=== PATIENT | female | born 1965 | race Caucasian/White ===

== ENCOUNTER 2017-06-20 09:23 | Inpatient (IN) | payer BC ==
[2017-06-20] MEDS ORDERED: CIPROFLOXACIN 400mg IV 400 MG/200 ML BAG IV ONE (09:47)
[2017-06-20] MEDS ORDERED: FENTANYL CITR 100 MCG/2 ML ONE ×2 (09:47→12:13)
[2017-06-20] MEDS ORDERED: METRONIDAZOLE 500mg IVPB 500 MG/100 ML BAG IV ONE (09:47)
[2017-06-20] MEDS ORDERED: ONDANSETRON 4 MG/2 ML VIAL ONE ×3 (09:47→12:38)
[2017-06-20] MEDS ORDERED: NA CHLORIDE 0.9% 1,000 ML ONE (09:48)
[2017-06-20 10:12] LABS: Absolute Lymphocytes (CBC) 1.8 K/uL (0.7-4.9); Absolute Monocytes 0.9 K/uL (0.1-1.3); Basophils % 0.6 % (0-1.3); Eosinophils % 0.3 % (0-4.4); Hematocrit 43.8 % (36.0-45.0); Lymphocytes % 14.1 % (15.3-44.8); MCH 27.7 pg (27.0-35.0); MCV 83.2 fL (80-100); MPV 7.9 fL (7.6-11.3); Monocytes % 7.3 % (3.3-12.3); RBC Red Blood Cell Count 5.27 M/uL (3.86-4.86)
[2017-06-20 10:21] LABS: Protime INR 1.16
[2017-06-20 10:27] LABS: Bicarbonate 27 mEq/L (21-31); Glucose Level 127 mg/dL (65-120); Lipase 12 U/L (22-51); Potassium 3.6 mEq/L (3.6-5.0); Sodium Level 135 mEq/L (135-145)
[2017-06-20 10:33] LABS: ALT/SGPT 34 IU/L (10-60); AST/SGOT 22 IU/L (10-42); Albumin 4.6 g/dL (3.2-5.5); Alkaline Phosphatase 116 IU/L (42-121); BUN Blood Urea Nitrogen 9 mg/dL (6-20); Bilirubin Direct 0.3 mg/dL (0-0.2); Bilirubin Total 2.5 mg/dL (0.3-1.2); Creatine Phosphokinase 26 IU/L (22-269); Magnesium 1.7 mg/dL (1.8-2.5); Protein, Total 8.9 g/dL (6.0-8.3)
[2017-06-20 10:36] LABS: CKMB Creatine Kinase MB 0.5 ng/ml (0.3-4.0)
--- NOTE | 2017-06-20 10:46 | ER ---
Nurse's Notes [facility] Name: Nuria Galvan Age: 52 yrs Sex: Female : 1965 Arrival Date: 06/20/2017 Time: 09:25 Bed 14 Private MD: Jony Triplett Diagnosis: Abdominal tenderness;Diverticular disease of intestine;Diverticulosis of small intestine without perforation or abscess without bleeding;Hypomagnesemia;Elevated white blood cell count Presentation: 06/20 09:36 Presenting complaint: Patient states: " I am having a diverticulitis flare. It started ph yesterday." Pt reports pain in LLQ that radiates across umbilical area to RLQ, also reports nausea, denies vomiting diarrhea or fever. Transition of care: patient was not received from another setting of care. Onset of symptoms was June 20, 2017. Initial Sepsis Screen: Does the patient meet any 2 criteria? No. Patient's initial sepsis screen is negative. Does the patient have a suspected source of infection? No. Patient's initial sepsis screen is negative. Care prior to arrival: None. 09:36 Method Of Arrival: Ambulatory ph 09:36 Acuity: SHELLIE 3 ph Triage Assessment: 09:40 General: Appears in no apparent distress. uncomfortable, well groomed, Behavior is ph calm, cooperative, appropriate for age, Denies fever. Pain: Complains of pain in left upper quadrant and left lower quadrant Pain radiates to right lower quadrant and right upper quadrant Pain currently is 10 out of 10 on a pain scale. Quality of pain is described as burning, sharp, shooting. Neuro: Level of Consciousness is awake, alert, obeys commands, Oriented to person, place, time, situation. Cardiovascular: Capillary refill < 3 seconds Patient's skin is warm and dry. Respiratory: Airway is patent Respiratory effort is even, unlabored, Respiratory pattern is regular, symmetrical. GI: Abdomen is round non-distended, Bowel sounds present X 4 quads. Abd is soft X 4 quads Abdomen is tender to palpation in left upper quadrant and left lower quadrant Reports lower abdominal pain, upper abdominal pain, nausea, Patient currently denies constipation, diarrhea, vomiting. Derm: Skin is intact, is healthy with good turgor, Skin is pink, warm \\T\\ dry. Musculoskeletal: Circulation, motion, and sensation intact. Range of motion: intact in all extremities. 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 - Social history:: Smoking status: Patient/guardian denies using tobacco, but has a distant history of tobacco abuse. - Family history:: not pertinent. Screenin:18 Abuse screen: Denies threats or abuse. Denies injuries from another. Nutritional ph screening: No deficits noted. Tuberculosis screening: No symptoms or risk factors identified. Fall Risk None identified. Assessment: 10:00 Reassessment:. General: NO change from previously documented assessment, see triage ph note. 10:30 Reassessment: Patient appears in no apparent distress at this time. Patient and/or ph family updated on plan of care and expected duration. Pain level reassessed. Patient is alert, oriented x 3, equal unlabored respirations, skin warm/dry/pink. Pt reports that nausea has improved and pain has decreased from 10/10 to 5/10, awaiting CT scan, family at bedside. 11:30 Reassessment: Patient appears in no apparent distress at this time. Patient and/or ph family updated on plan of care and expected duration. Pain level reassessed. Patient is alert, oriented x 3, equal unlabored respirations, skin warm/dry/pink. Pt c/o nausea and pain /10, provider notified, see MAR. 11:50 Reassessment: Patient appears in no apparent distress at this time. Patient is alert, ph oriented x 3, equal unlabored respirations, skin warm/dry/pink. IV to RAC infiltrated when administering IV pain and nausea medication, provider notified. 12:20 Reassessment: Patient appears in no apparent distress at this time. Patient and/or ph family updated on plan of care and expected duration. Pain level reassessed. Patient is alert, oriented x 3, equal unlabored respirations, skin warm/dry/pink. IV access re-established w/ 18G to LAC, pt taken to CT via stretcher. 13:30 Reassessment: Patient appears in no apparent distress at this time. Patient and/or ph family updated on plan of care and expected duration. Pain level reassessed. Patient is alert, oriented x 3, equal unlabored respirations, skin warm/dry/pink. Report called to NAYELI Quiñones, pt taken to floor. Vital Signs: 09:39 BP 137 / 82; Pulse 121; Resp 18; Temp 97.8(TE); Pulse Ox 100% on R/A; Weight 78.47 kg; ph Height 5 ft. 5 in. (165.10 cm); Pain 10/10; 11:00 BP 129 / 78; Pulse 97; Resp 18; Pulse Ox 99% on R/A; ph 12:30 BP 127 / 64; Pulse 88; Resp 16; Pulse Ox 98% on R/A; Pain 3/10; ph 13:30 BP 126 / 74; Pulse 84; Resp 16; Temp 98.2; Pulse Ox 98% on R/A; ph 09:39 Body Mass Index 28.79 (78.47 kg, 165.10 cm) ph ED Course: 09:25 Patient arrived in ED. as 09:25 Jony Triplett DO is Private Physician. as 09:29 Johnny Trent MD is Attending Physician. susana 09:36 Dalila Martínez RN is Primary Nurse. ph 09:38 Triage completed. ph 09:40 Arm band placed on. ph 09:47 X-ray completed. Portable x-ray completed in exam room. Patient tolerated procedure kp1 well. 09:48 XRAY Chest (1 view) In Process Unspecified. EDMS 09:55 Urine collected: clean catch specimen, cloudy, javier colored. jb1 10:05 Accessed peripheral vein via ultrasound, utilizing dynamic ultrasound technique using la1 18G Sureflo IV catheter Clean \\T\\ dry. Dressing intact. 10:11 EKG done, by ED staff, reviewed by Johnny Trent MD. jb1 10:19 Patient has correct armband on for positive identification. Placed in gown. Bed in low ph position. Call light in reach. Side rails up X 1. Pulse ox on. NIBP on. Warm blanket given. 10:44 Ron Baker MD is Hospitalizing Provider. susana 12:02 Note: . Note: NAYELI Thompson will call when pt has IV.. Radiology exam delayed due to IV cw1 insertion attempt and/or patient not having appropriate IV at this time. 12:20 IV discontinued, intact, bleeding controlled, No redness/swelling at site. Pressure la1 dressing applied. 12:20 Accessed peripheral vein via ultrasound, utilizing dynamic ultrasound technique using la1 18G Sureflo IV catheter 12:28 CT completed. Patient moved to CT via stretcher. Patient moved back from CT. cw1 13:30 No provider procedures requiring assistance completed. ph Administered Medications: 10:10 Drug: NS 0.9% 1000 ml Route: IV; Rate: 1 bolus; Site: right antecubital; ph 10:10 Drug: fentaNYL (PF) 50 mcg Route: IVP; Site: right antecubital; ph 10:10 Drug: Zofran 4 mg Route: IVP; Site: right antecubital; ph 10:10 Drug: Flagyl 500 mg Volume: 100 ml; Route: IVPB; Rate: 200 ml/hr; Infused Over: 30 ph mins; Site: right antecubital; 10:50 Follow up: Response: No adverse reaction; IV Status: Completed infusion ph 10:48 Drug: Cipro 400 mg Volume: 200 ml; Route: IVPB; Infused Over: 60 mins; Site: right ph antecubital; 11:40 Drug: fentaNYL (PF) 50 mcg Route: IVP; Site: right antecubital; ph 11:40 Drug: Zofran 4 mg Route: IVP; Site: right antecubital; ph 12:20 Drug: fentaNYL (PF) 25 mcg Route: IVP; Site: left antecubital; ph 12:40 Drug: Rocephin - (cefTRIAXone) 1 grams Route: IVPB; Infused Over: 30 mins; Site: left ph antecubital; 12:45 Drug: Zofran 4 mg Route: IVP; Site: left antecubital; ph 12:50 Drug: Magnesium Sulfate 1 grams Route: IVPB; Infused Over: 1 hrs; Site: left ph antecubital; Outcome: 10:46 Decision to Hospitalize by Provider. susana 13:42 Patient left the ED. rb1 13:42 Admitted to Med/surg accompanied by tech, via wheelchair, with chart. ph 13:42 Condition: stable 13:42 Instructed on the need for admit. Signatures: Dispatcher [employer] EDJi German jb1 Johnny Trent MD MD cha Martinez, Amelia as Woodley, Crystal cw1 Jay Weber RN RN la1 Dalila Martínez RN RN ph Cara Aguiar, RN RN rb1 Elvira Colbert kp1 Corrections: (The following items were deleted from the chart) 12:50 12:40 Rocephin - (cefTRIAXone) 1 grams IVPB in right antecubital over 30 mins ph ph
--- NOTE | 2017-06-20 10:47 | EDPHYS ---
Physician Documentation [facility] Name: Nuria Galvan Age: 52 yrs Sex: Female : 1965 Arrival Date: 06/20/2017 Time: 09:25 Bed 14 Private MD: [facility] ED Physician Johnny Trent HPI: 06/20 09:36 This 52 yrs old Female presents to ER via Unassigned with complaints of susana Abdominal Pain. 09:36 The patient presents with abdominal pain in the upper abdomen, in the lower abdomen, susana abdominal distention in the upper abdomen, in the lower abdomen. Onset: The symptoms/episode began/occurred 2 day(s) ago. The symptoms do not radiate. Associated signs and symptoms: none. The symptoms are described as constant, crampy. Severity of pain: At its worst the pain was mild moderate in the emergency department the pain is unchanged. The patient has not experienced similar symptoms in the past. 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 - Social history:: Smoking status: Patient/guardian denies using tobacco, but has a distant history of tobacco abuse. - Family history:: not pertinent. ROS: 09:36 Constitutional: Negative for fever, chills, and weight loss, Eyes: Negative for injury, susana pain, redness, and discharge, ENT: Negative for injury, pain, and discharge, Neck: Negative for injury, pain, and swelling, Cardiovascular: Negative for chest pain, palpitations, and edema, Respiratory: Negative for shortness of breath, cough, wheezing, and pleuritic chest pain, Back: Negative for injury and pain, : Negative for injury, bleeding, discharge, and swelling, MS/Extremity: Negative for injury and deformity, Skin: Negative for injury, rash, and discoloration, Neuro: Negative for headache, weakness, numbness, tingling, and seizure, Psych: Negative for depression, anxiety, suicide ideation, homicidal ideation, and hallucinations, Allergy/Immunology: Negative for hives, rash, and allergies, Endocrine: Negative for neck swelling, polydipsia, polyuria, polyphagia, and marked weight changes, Hematologic/Lymphatic: Negative for swollen nodes, abnormal bleeding, and unusual bruising. 09:36 Abdomen/GI: Positive for abdominal pain, of the right upper quadrant, left upper quadrant, right lower quadrant and left lower quadrant. Exam: 09:36 Constitutional: This is a well developed, well nourished patient who is awake, alert, susana and in no acute distress. Head/Face: Normocephalic, atraumatic. Eyes: Pupils equal round and reactive to light, extra-ocular motions intact. Lids and lashes normal. Conjunctiva and sclera are non-icteric and not injected. Cornea within normal limits. Periorbital areas with no swelling, redness, or edema. ENT: Nares patent. No nasal discharge, no septal abnormalities noted. Tympanic membranes are normal and external auditory canals are clear. Oropharynx with no redness, swelling, or masses, exudates, or evidence of obstruction, uvula midline. Mucous membranes moist. Neck: Trachea midline, no thyromegaly or masses palpated, and no cervical lymphadenopathy. Supple, full range of motion without nuchal rigidity, or vertebral point tenderness. No Meningismus. Chest/axilla: Normal chest wall appearance and motion. Nontender with no deformity. No lesions are appreciated. Cardiovascular: Regular rate and rhythm with a normal S1 and S2. No gallops, murmurs, or rubs. Normal PMI, no JVD. No pulse deficits. Respiratory: Lungs have equal breath sounds bilaterally, clear to auscultation and percussion. No rales, rhonchi or wheezes noted. No increased work of breathing, no retractions or nasal flaring. Back: No spinal tenderness. No costovertebral tenderness. Full range of motion. Skin: Warm, dry with normal turgor. Normal color with no rashes, no lesions, and no evidence of cellulitis. MS/ Extremity: Pulses equal, no cyanosis. Neurovascular intact. Full, normal range of motion. Neuro: Awake and alert, GCS 15, oriented to person, place, time, and situation. Cranial nerves II-XII grossly intact. Motor strength 5/5 in all extremities. Sensory grossly intact. Cerebellar exam normal. Normal gait. Psych: Awake, alert, with orientation to person, place and time. Behavior, mood, and affect are within normal limits. 09:36 Abdomen/GI: Inspection: abdomen appears normal, Bowel sounds: active, Palpation: mild abdominal tenderness, moderate abdominal tenderness, Liver: no appreciated palpable abnormalities, Hernia: not appreciated. Vital Signs: 09:39 BP 137 / 82; Pulse 121; Resp 18; Temp 97.8(TE); Pulse Ox 100% on R/A; Weight 78.47 kg; ph Height 5 ft. 5 in. (165.10 cm); Pain 10/10; 11:00 BP 129 / 78; Pulse 97; Resp 18; Pulse Ox 99% on R/A; ph 12:30 BP 127 / 64; Pulse 88; Resp 16; Pulse Ox 98% on R/A; Pain 3/10; ph 13:30 BP 126 / 74; Pulse 84; Resp 16; Temp 98.2; Pulse Ox 98% on R/A; ph 09:39 Body Mass Index 28.79 (78.47 kg, 165.10 cm) ph MDM: 09:[address] [facility] 09:38 Data reviewed: vital signs, nurses notes, lab test result(s), EKG, radiologic studies, [facility] CT scan, plain films. 06/20 09:35 Order name: Basic Metabolic Panel; Complete Time: 10:40 [facility] 06/20 09:35 Order name: BNP; Complete Time: 10:43 [facility] 06/20 09:35 Order name: CBC with Diff; Complete Time: 10:40 [facility] 06/20 09:35 Order name: Ckmb; Complete Time: 10:40 [facility] 06/20 09:35 Order name: CPK; Complete Time: 10:40 [facility] 06/20 09:35 Order name: LFT's; Complete Time: 10:40 [facility] 06/20 09:35 Order name: Magnesium; Complete Time: 10:40 [facility] 06/20 09:35 Order name: PT-INR; Complete Time: 10:40 [facility] 06/20 09:35 Order name: Ptt, Activated; Complete Time: 10:40 [facility] 06/20 09:35 Order name: Troponin (emerg Dept Use Only); Complete Time: 10:40 [facility] 06/20 09:35 Order name: XRAY Chest (1 view); Complete Time: 11:33 [facility] 06/20 09:35 Order name: CT Abd/Pelvis - W/Contrast [facility] 06/20 09:35 Order name: Lipase; Complete Time: 10:40 [facility] 06/20 09:59 Order name: Urine Dipstick--Ancillary (enter results); Complete Time: 13:34 eb 06/20 09:35 Order name: EKG; Complete Time: 09:36 [facility] 06/20 09:35 Order name: Cardiac monitoring; Complete Time: 09:56 [facility] 06/20 09:35 Order name: EKG - Nurse/Tech; Complete Time: 10:11 [facility] 06/20 09:35 Order name: IV Saline Lock; Complete Time: 10:11 [facility] 06/20 12:39 Order name: CT; Complete Time: 13:34 EDMS 06/20 09:35 Order name: Labs collected and sent; Complete Time: 10:11 [facility] 06/20 09:35 Order name: O2 Per Protocol; Complete Time: 09:57 [facility] 06/20 09:35 Order name: O2 Sat Monitoring; Complete Time: 09:57 [facility] 06/20 09:35 Order name: Urine Dipstick-Ancillary (obtain specimen); Complete Time: 09:56 [facility] Administered Medications: 10:10 Drug: NS 0.9% 1000 ml Route: IV; Rate: 1 bolus; Site: right antecubital; ph 10:10 Drug: fentaNYL (PF) 50 mcg Route: IVP; Site: right antecubital; ph 10:10 Drug: Zofran 4 mg Route: IVP; Site: right antecubital; ph 10:10 Drug: Flagyl 500 mg Volume: 100 ml; Route: IVPB; Rate: 200 ml/hr; Infused Over: 30 ph mins; Site: right antecubital; 10:50 Follow up: Response: No adverse reaction; IV Status: Completed infusion ph 10:48 Drug: Cipro 400 mg Volume: 200 ml; Route: IVPB; Infused Over: 60 mins; Site: right ph antecubital; 11:40 Drug: fentaNYL (PF) 50 mcg Route: IVP; Site: right antecubital; ph 11:40 Drug: Zofran 4 mg Route: IVP; Site: right antecubital; ph 12:20 Drug: fentaNYL (PF) 25 mcg Route: IVP; Site: left antecubital; ph 12:40 Drug: Rocephin - (cefTRIAXone) 1 grams Route: IVPB; Infused Over: 30 mins; Site: left ph antecubital; 12:45 Drug: Zofran 4 mg Route: IVP; Site: left antecubital; ph 12:50 Drug: Magnesium Sulfate 1 grams Route: IVPB; Infused Over: 1 hrs; Site: left ph antecubital; Disposition: 06/20/17 10:46 Hospitalization ordered by Ron Baker for Inpatient Admission. Preliminary diagnosis are Abdominal tenderness, Diverticular disease of intestine, Diverticulosis of small intestine without perforation or abscess without bleeding, Hypomagnesemia, Elevated white blood cell count. - Bed requested for Telemetry/MedSurg (Inpatient). - Status is Inpatient Admission. rb1 - Condition is Stable. - Problem is new. - Symptoms have improved. UTI on Admission? No Signatures: Dispatcher [employer] EDMS Johnny Trent MD MD cha Smirch, Shelby, RN RN ss Dalila Martínez RN RN Cara Aguiar RN RN rb1 Miryam Presley
--- NOTE | 2017-06-20 10:57 | RAD REPORT ---
EXAM DESCRIPTION: RAD - Chest Single View - 06/20/2017 9:49 am CLINICAL HISTORY: Chest and abdomen pain. COMPARISON: 10/17/2016 FINDINGS: Portable technique limits examination quality. The lungs are grossly clear. The heart is normal in size. No displaced fractures. IMPRESSION: No acute intrathoracic process suspected.
[2017-06-20] MEDS ORDERED: ONDANSETRON 4 MG/2 ML VIAL IV PRN (11:08)
[2017-06-20] MEDS ORDERED: ACETAMINOPHEN 500 MG TAB PO PRN (11:08)
[2017-06-20] MEDS ORDERED: MAGNESIUM SULFATE 1 gm IVPB 1 GM/100 ML BAG IV ONE (11:28)
[2017-06-20] MEDS ORDERED: CEFTRIAXONE/SWI 1gm 1 GM/10 ML SYR ONE (11:28)
[2017-06-20 12:28] LABS: Urine Blood TRACE (NEG); Urine Glucose NEGATIVE (NEG); Urine Protein TRACE (NEG); Urine Specific Gravity 1.025 (1.005-1.030); Urine pH 5.5 (5.0-7.0)
--- NOTE | 2017-06-20 12:39 | RAD REPORT ---
EXAM DESCRIPTION: CTAbdomen Pelvis W Contrast - 06/20/2017 12:29 pm CLINICAL HISTORY: Abdominal pain. Left lower quadrant pain COMPARISON: 10/16/2016, 10/07/2016, 10/23/2014 TECHNIQUE: Biphasic CT imaging of the abdomen and pelvis was performed with 100 ml non-ionic IV cont rast. All CT scans are performed using dose optimization technique as appropriate and may include automated exposure control or mA/KV adjustment according to patient size. FINDINGS: The lung bases are clear. Mild diffuse fatty liver is noted. No focal liver lesion or intrahepatic biliary dilatation. A small hiatal hernia is seen. The spleen, pancreas, adrenal glands and kidneys are within normal limits. 5 cm length of transverse colon in the left abdomen demonstrates significant wall thickening and lucrecia colonic inflammatory changes compatible with moderately severe acute diverticulitis. No peridiverticu lar abscess identified. No bowel obstruction, free fluid in the abdomen or free air. Trace pelvic demarcus e fluid is seen. The appendix is normal. No evidence of significant lymphadenopathy. No suspicious bony findings. IMPRESSION: 5 cm length of transverse colon moderate acute diverticulitis is noted. No peridiverticu lar abscess or other complication evident.
[2017-06-20] MEDS ORDERED: HYDROCODONE/APAP 5/325 MG TAB PO PRN (14:02)
[2017-06-20 14:21] VITALS: BMI 29.0
[2017-06-20] MEDS: D5 0.45 NS 1,000 ML IV SCH (14:28)
[2017-06-20] MEDS ORDERED: SODIUM CHLORIDE 0.9% 10ML INJ IV PRN (14:33)
[2017-06-20] MEDS ORDERED: FENTANYL CITR 100 MCG/2 ML IV ONE (15:00)
[2017-06-20] MEDS: PIPER/TAZO/NS 3.375gm 3.375 GM/100 ML BAG IVPB SCH (17:14)
[2017-06-20] MEDS ORDERED: TRAMADOL HCL 50 MG TAB PO PRN (17:18)
[2017-06-20] MEDS ORDERED: TRAMADOL HCL 50 MG TAB PO SCH (21:00)
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
[2017-06-21] MEDS: PIPER/TAZO/NS 3.375gm 3.375 GM/100 ML BAG IVPB SCH ×3 (01:00→17:39)
[2017-06-21] MEDS: D5 0.45 NS 1,000 ML IV SCH ×3 (01:00→17:39)
--- NOTE | 2017-06-21 04:23 | CON ---
Date of Consultation: 06/20/2017 Reason For Service: Diverticulitis. History Of Present Illness: This is the case of a 52-year-old patient, who comes to us complaining o f a left lower quadrant pain. She is not new to this. She stated that in the past she has history o f diverticulitis requiring removal of part of the sigmoid colon. She has been trying to keep her t, but she said in the last 2 days she started experiencing this left lower quadrant pain similar to the one she has diverticulitis before. Today, she decided to come to the ER after she noted she was not getting better. She denies any dysuria, hematuria, hematochezia, or melena. Den[place] any recent [place]. Denies any family member sick at home. Previous colonoscopy unknown. Allergies: NONE. Medications: Protonix. Past Medical History: Diverticulitis, mitral valve prolapse. Past Surgical History: Sigmoid resection. Social History: The patient does not smoke. She does not drink alcohol. Review of Systems: Constitutional: Denies any fever. Respiratory: Denies any shortness of breath. Abdomen: As above. Genitourinary: Denies any dysuria or hematuria. Physical Examination: General: The patient is awake and alert. HEENT: Pupils are equal and reactive, anicteric. Neck: Supple. Chest: Clear. Heart: S1, S2. Abdomen: Left lower quadrant tenderness. No rebound, although there is some guarding. Breasts: Deferred. Pelvic: Deferred. Rectal: Deferred. Extremities: Good capillary refill. Imaging: CAT scan of abdomen and pelvis, interpreted by Dr. Infante as 5 cm in length of left transvers e colon moderate acute diverticulitis. Laboratory Data: Blood work shows a WBC count of 12.9, hemoglobin of 14.6. Total bilirubin of 2.5 a nd bicarb is 27. Assessment: This is a 52-year-old patient with colitis, presumably diverticulitis. The patient has previous surgery. The patient will continue on antibiotics, n.p.o., bowel rest. We are going to do serial abdominal examination and then proceed accordingly. The patient understands the differential diagnosis of her disease and also the options of emergent laparotomy if we see that clinically she do es not improve. She understands. TANIKA/SHEELA Voice ID: [id number] Report ID: [id number]
[2017-06-21 05:43] LABS: ALT/SGPT 28 IU/L (10-60); AST/SGOT 19 IU/L (10-42); Absolute Lymphocytes (CBC) 1.6 K/uL (0.7-4.9); Absolute Monocytes 0.7 K/uL (0.1-1.3); Absolute Neutrophil 4.9 K/uL (1.8-8.0); Albumin 3.3 g/dL (3.2-5.5); Alkaline Phosphatase 89 IU/L (42-121); BUN Blood Urea Nitrogen 5 mg/dL (6-20); Basophils % 0.7 % (0-1.3); Bicarbonate 26 mEq/L (21-31); Bilirubin Total 2.2 mg/dL (0.3-1.2); Glucose Level 131 mg/dL (65-120); Hematocrit 35.7 % (36.0-45.0); Lymphocytes % 21.7 % (15.3-44.8); MCH 27.7 pg (27.0-35.0); MCV 83.8 fL (80-100); MPV 8.1 fL (7.6-11.3); Magnesium 1.9 mg/dL (1.8-2.5); Monocytes % 9.8 % (3.3-12.3); Potassium 3.5 mEq/L (3.6-5.0); Protein, Total 6.6 g/dL (6.0-8.3); RBC Red Blood Cell Count 4.26 M/uL (3.86-4.86); Sodium Level 137 mEq/L (135-145)
[2017-06-21] MEDS ORDERED: POTASSIUM 25 MEQ EFFERV TAB PO ONE (06:25)
--- NOTE | 2017-06-21 07:06 | EKG ---
Test Date: 2017-06-20 Test Time: 10:06:03 Equipment Oiler: CLAIRE MEASUREMENT RESULTS: Intervals: Rate: 117 PA: 202 QRSD: 130 QT: 356 QTc: 496 [place]: P: 58 PA: 202 QRS: 30 T: 11 INTERPRETIVE STATEMENTS: Sinus tachycardia Right bundle branch block Abnormal ECG Compared to ECG 10/16/2016 12:32:16 Sinus rhythm no longer present Electronically Signed On 06-21-17 07:05:50 CDT by Berto Gray
[2017-06-21] MEDS: PANTOPRAZOLE 40 MG INJ IVP SCH (09:42)
--- NOTE | 2017-06-21 10:15 | P.PN ---
Subjective Date of Service: 06/21/17 Chief Complaint: abdominal pain The patient feels better this morning, however, no appetite yet. No fever. Physical Examination - Vital Signs Temperature: 97.6 F Blood Pressure: 119/59 Pulse: 76 Respirations: 16 Pulse Ox (%): 96 - Physical Exam General: Alert, In no apparent distress HEENT: Atraumatic, PERRLA, EOMI Neck: Supple, JVD not distended Respiratory: Clear to auscultation bilaterally, Normal air movement Cardiovascular: Regular rate/rhythm, Normal S1 S2 Gastrointestinal: Normal bowel sounds, Tenderness (less tender to palpation on LLQ) Musculoskeletal: No tenderness Integumentary: No rashes Neurological: Normal speech, Normal tone, Normal affect - Studies Laboratory Data (last 24 hrs) 06/20/17 10:05: PT 13.7 H, INR 1.16, APTT 32.8 06/20/17 10:05: WBC 12.9 H, Hgb 14.6, Hct 43.8, Plt Count 383 06/20/17 10:05: B-Natriuretic Peptide 12 06/20/17 10:05: Sodium 135, Potassium 3.6, BUN 9, Creatinine 0.68, Glucose 127 H , Magnesium 1.7 L, Total Bilirubin 2.5 H, AST 22, ALT 34, Alkaline Phosphatase 116, Lipase 12 L Assessment And Plan - Current Problems (Diagnosis) (1) Abdominal pain Onset Date: 06/21/17 Current Visit: Yes Status: Acute Qualifiers: Abdominal location: left lower quadrant Qualified Code(s): R10.32 - Left lower quadrant pain (2) Diverticulitis Onset Date: 09/03/14 Current Visit: No Status: Acute (3) Hypokalemia Current Visit: Yes Status: Acute - Plan # 1 acute diverticulitis: she is clinically improving, no fever, WBC decreasing , pain better controlled. Continue IV abx. Dr Lozano on board, plan for surgery if not improving. #2 hypokalemia: will replace potassium per protocol.
[2017-06-22] MEDS: PIPER/TAZO/NS 3.375gm 3.375 GM/100 ML BAG IVPB SCH ×3 (00:26→16:26)
[2017-06-22] MEDS: D5 0.45 NS 1,000 ML IV SCH ×3 (04:01→16:26)
[2017-06-22 05:45] LABS: Absolute Monocytes 0.7 K/uL (0.1-1.3); Absolute Neutrophil 4.1 K/uL (1.8-8.0); Basophils % 0.6 % (0-1.3); Eosinophils % 5.7 % (0-4.4); Hematocrit 35.8 % (36.0-45.0); Lymphocytes % 27.2 % (15.3-44.8); MCH 28.4 pg (27.0-35.0); MCV 83.7 fL (80-100); MPV 8.1 fL (7.6-11.3); Monocytes % 9.5 % (3.3-12.3); RBC Red Blood Cell Count 4.28 M/uL (3.86-4.86)
[2017-06-22 07:04] LABS: ALT/SGPT 37 IU/L (10-60); AST/SGOT 20 IU/L (10-42); Albumin 2.9 g/dL (3.2-5.5); Alkaline Phosphatase 114 IU/L (42-121); BUN Blood Urea Nitrogen 5 mg/dL (6-20); Bicarbonate 26 mEq/L (21-31); Bilirubin Total 2.1 mg/dL (0.3-1.2); Glucose Level 116 mg/dL (65-120); Potassium 3.8 mEq/L (3.6-5.0); Sodium Level 137 mEq/L (135-145)
[2017-06-22] MEDS ORDERED: POTASSIUM CL SA 10 MEQ TAB PO ONE (09:00)
[2017-06-22] MEDS: PANTOPRAZOLE 40 MG INJ IVP SCH (09:52)
--- NOTE | 2017-06-22 17:41 | P.PN ---
Subjective Date of Service: 06/22/17 Chief Complaint: abdominal pain The patient is doing better, no abdominal pain. Physical Examination - Vital Signs Temperature: 97.9 F Blood Pressure: 124/60 Pulse: 59 Respirations: 18 Pulse Ox (%): 98 - Physical Exam General: Alert, In no apparent distress Respiratory: Clear to auscultation bilaterally, Normal air movement Cardiovascular: Regular rate/rhythm, Normal S1 S2 Gastrointestinal: Normal bowel sounds, No tenderness Musculoskeletal: No tenderness Integumentary: No rashes Neurological: Normal speech, Normal tone, Normal affect - Studies Medications List Reviewed: Yes Assessment And Plan - Current Problems (Diagnosis) (1) Abdominal pain Onset Date: 06/21/17 Current Visit: Yes Status: Acute Qualifiers: Abdominal location: left lower quadrant Qualified Code(s): R10.32 - Left lower quadrant pain (2) Diverticulitis Onset Date: 09/03/14 Current Visit: No Status: Acute (3) Hypokalemia Current Visit: Yes Status: Acute - Plan # 1 acute diverticulitis: No abdominal pain, no fever, WBC WNL. She tolerated well clear liquids diet. Will try full liquids tonight. Continue IV abx. Dr Lozano on board. #2 hypokalemia: resolved. plan: will try GI soft diet in AM if she continue improving. Then if she tolerate diet ok, can be discharged.
--- NOTE | 2017-06-22 18:04 | PN ---
Date of Progress Note: 06/22/2017 Diagnosis: Diverticulitis. Subjective: The patient is doing better, barely any pain, tolerating clear liquid diet and passing f latus. Review of Systems: Constitutional: Denies any fever. Gastrointestinal: Less pain. No hematuria. No melena. No rylee tochezia. Respiratory: No shortness of breath. Physical Examination: Lungs: Bilateral breath sounds. Extremities: No calf tenderness. The patient is ambulating. Abdomen: Soft and depressible. Mild left lower quadrant tenderness. Laboratory Data: Blood work shows a WBC count of 7.2. Plan: We are going to advance to full liquid diet. Out of bed. Continue on antibiotics. Follow up with GI. The patient states she had a colonoscopy done in March. Other than 1 polyp, everything is okay and also diverticulum obviously. TANIKA/SHEELA Voice ID: [id number] Report ID: [id number]
[2017-06-22 22:49] VITALS: O2SAT 96
[2017-06-23] MEDS: D5 0.45 NS 1,000 ML IV SCH ×2 (00:34→08:52)
[2017-06-23] MEDS: PIPER/TAZO/NS 3.375gm 3.375 GM/100 ML BAG IVPB SCH ×2 (00:34→08:48)
[2017-06-23 05:26] LABS: Absolute Lymphocytes (CBC) 1.9 K/uL (0.7-4.9); Absolute Monocytes 0.5 K/uL (0.1-1.3); Absolute Neutrophil 1.9 K/uL (1.8-8.0); Basophils % 0.7 % (0-1.3); Eosinophils % 8.4 % (0-4.4); Hematocrit 34.9 % (36.0-45.0); Lymphocytes % 40.7 % (15.3-44.8); MCH 27.8 pg (27.0-35.0); MCV 83.3 fL (80-100); MPV 8.1 fL (7.6-11.3); Monocytes % 9.8 % (3.3-12.3); RBC Red Blood Cell Count 4.18 M/uL (3.86-4.86)
[2017-06-23 05:46] LABS: ALT/SGPT 35 IU/L (10-60); AST/SGOT 22 IU/L (10-42); Alkaline Phosphatase 121 IU/L (42-121); Bicarbonate 25 mEq/L (21-31); Bilirubin Total 1.1 mg/dL (0.3-1.2); Glucose Level 109 mg/dL (65-120); Protein, Total 6.2 g/dL (6.0-8.3); Sodium Level 138 mEq/L (135-145)
[2017-06-23 05:55] LABS: BUN Blood Urea Nitrogen < 5 mg/dL (6-20)
[2017-06-23] MEDS: PANTOPRAZOLE 40 MG INJ IVP SCH (08:47)
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
[2017-06-23 13:36] VITALS: BP 117/57; TEMP 97.2
--- NOTE | 2017-07-02 01:35 | CON ---
Date of Consultation: 06/22/2017 Reason For Consultation: Diverticulitis with abnormal CT scan with abdominal pain, nausea, vomiting, fever, chills. History Of Present Illness: This patient is a 52-year-old white female with history of diverticulosi s and recurrent diverticulitis, who comes to the hospital with abdominal pain in the left upper quadr ant. The patient states the pain reached 10/10 level, now down to 2/10 with p.r.n. pain medicines an d antiemetics and IV antibiotics. CT scan revealed diverticulitis in the transverse colon. She has left upper quadrant pain, nausea, vomiting, fevers, and chills. White count is elevated at 12.1 with low magnesium. Past Medical History: Significant for recurrent diverticulitis, gastroesophageal reflux disease, and mitral valve prolapse. Past Surgical History: Remarkable for partial colectomy, left 16 inches of her colon, tub al ligation, and cholecystectomy. Allergies: NKDA. Family History: Father has hypertension, of pituitary adenoma. Mom has diverticulitis and lung cancer. Sister and did have epilepsy. Social History: No tobacco, alcohol, or illicit drug use. Review of Systems: Significant for left upper quadrant pain, nausea, fevers, chills. She states now that she has no filemon sis only the nausea with fevers and chills and left upper quadrant pain. She denies any chest pain, shortness of breath, seizure, syncope, lower extremity edema, muscle aches, backaches, depression, an xiety, melena, hematochezia, hematemesis, coffee-ground emesis, hematuria, dysuria, polydipsia. Physical Examination: Vital Signs: The patient is afebrile. Temperature of 97.7 degrees Fahrenheit, pulse 67, respiration s 18, blood pressure 101/52, O2 saturation 96%. General: She is a well-nourished female, lying in bed, in no acute distress. HEENT: Normocephalic, atraumatic. Anicteric. Pupils equal, round, and reactive to light. Anicteri c sclerae. Oropharynx is clear. Throat clear. Neck: Supple. No masses. Respirations: Clear to auscultation bilaterally. Cardiac: Regular rate and rhythm. Gastrointestinal: Positive bowel sounds. Hypoactive. Soft, nondistended. Pain in the left upper q uadrant area. No peritoneal or Castillo sign. No rebound. Extremities: No clubbing, cyanosis, or edema. 2+ pulses. Neuro: Alert and oriented x3. Grossly nonfocal. 5/5 motor strength. Sensation to light touch. Laboratory Data: The patient has a white count of 7.2, down from 12.9 two days ago. Hemoglobin of 1 2.1, hematocrit 36, MCV of 84, platelet count 312, polys of 57%, lymphocytes 27%, monocytes 10%, and eosinophils 6%. PT of 13.7, INR of 1.2, PTT 32.8. The patient has a sodium 137, potassium 3.8, chlo ride 106, bicarb 26, BUN of 5, creatinine of 0.6, glucose 116, calcium 8.6, magnesium 1.9, total bili taylor 2.1, AST of 20, ALT of 37, alkaline phosphatase 114. Troponin I less than 0.03. Total protein 6.9, albumin 2.9, lipase of 12. UA shows trace blood, trace protein. Imaging: CT scan abdomen and pelvis reviewed. A 5-cm length of transverse colon with moderate acute diverticulitis. No peridiverticular abscess or other complication. Chest x-ray is negative. Impression: Diverticulitis of transverse colon, 5 cm area of transverse colon inflamed that is consi stent with diverticulitis, noted on CT scan. The patient has left lower quadrant pain at 10/10 prior to admission, now 2/10 after IV antibiotics and IV pain medicine with nausea, fevers, chills. No em esis. She has recurrent diverticulitis x5 with sigmoid colon resection after 4 events. Last colonos copy was in March 2017, which revealed colon polyps, diverticulosis, and hemorrhoids. Recommendations: 1.Continue IV antibiotics and IV fluids. 2.Continue p.r.n. pain medications. 3.Consider partial colectomy. SCOTT/SHEELA Voice ID: [id number] Report ID: [id number]
--- NOTE | 2017-09-07 12:49 | P.PN ---
Subjective Date of Service: 06/21/17 Chief Complaint: abdominal pain, colitis Subjective: Ambulating, Improving Review of Systems Respiratory: Unremarkable Cardiovascular: Unremarkable Gastrointestinal: Unremarkable Musculoskeletal: Unremarkable Physical Examination - Vital Signs Temperature: 97.2 F Blood Pressure: 117/57 Pulse: 64 Respirations: 20 Pulse Ox (%): 96 - Physical Exam General: Alert, In no apparent distress, Oriented x3 HEENT: PERRLA, EOMI Neck: Supple Gastrointestinal: No rebound, Tenderness (better) Musculoskeletal: No swelling - Studies Medications List Reviewed: Yes Assessment And Plan - Plan abx clears oob
== END 2017-06-23 14:04 | disposition home or self-care (01) | DRG 392 ==
LOC: ER 09:23 → ERHOLD 10:47 → 2ND 13:24
PROVIDERS: ADMIT Family Medicine; ATTEND Internal Medicine
DX: K57.32 Diverticulitis of large intestine without perforation or abscess without bleeding (principal); E83.42 Hypomagnesemia; E87.6 Hypokalemia; I10 Essential (primary) hypertension; K21.9 Gastro-esophageal reflux disease without esophagitis
CPT/HCPCS: 36415; 71045; 74177; 80048; 80053; 80076; 81003; 82550; 82553; 83690; 83735; 83880; 84484; 85025; 85610; 85730; 93005; 94760; 99285; C9113; J0696; J0744; J2405; J2543; J3010; J3475; J7030; Q9967

== ENCOUNTER 2022-03-24 08:43 | Emergency (ER) | payer OTHER ==
--- OUTSIDE RECORDS SUMMARY | 2022-03-24 08:46 | XMS REPORT | Continuity of Care Document ---
:[address] [facility] t Address [address] [place] [address] Care Team Providers Name Role Phone Jony Triplett Primary Care Physician Jony Triplett Attending Clinician Unavailable JEY KELLY Attending Clinician Unavailable DONNELL HANKINS Attending Clinician Unavailable Donnell Adler Attending Clinician Unknown, Attending Attending Clinician Unavailable Ioana Dial Attending Clinician IOANA HARMAN Attending Clinician Unavailable Bibi Jones MD Attending Clinician Doctor Unassigned, Makena Attending Clinician Unavailable Payers Payer Name Policy Type Policy Number Effective Date Expiration Date [facility] [id number] 2021 PPO 00:00:00 Problems Condition Condition Condition Status Onset Resolution Last Treating Co mments Source Name Details Category Date Date Treatment Clinician Date No known No known Disease Unive rs active active ity of problems problems [facility] Allergies, Adverse Reactions, Alerts Allergy Allergy Status Severity Reaction(s) Onset Inactive Treating Comm ents Source Name Type Date Date Clinician NO KNOWN Drug Active Univers ALLERGIE Class ity of S [facility] Social History Social Habit Start Date Stop Date Quantity Comments Source Exposure to 2022-03-12 2022-03-22 Not sure [facility] SARS-CoV-2 00:00:00 09:45:00 [facility] (event) [place] Tobacco use and 2021-08-25 2021-08-25 Smokeless tobacco Un iversity of exposure 00:00:00 00:00:00 non-user [facility] Sex Ass[birth year] At [birth year] Universit y of 00:00:00 00:00:00 [facility] Smoking Status Start Date Stop Date Source Unknown if ever smoked [facility] Never smoked tobacco [facility] Medications Ordered Filled Start Stop Current Ordering Indication Dosage Frequency Signature Comments Components Source Medication Medication Date Date Medication? Clinician (SIG) Name Name pantoprazol Yes Take by Uni vers e sodium 1-22 mouth. ity of (PROTONIX 09:49: [place] ORAL) 02 [facility] Branch lidocaine Yes [id number] 15mL Take 15 mL Univers 2% viscous -22 by mouth ity o f (LIDOCAINE 00:00: [place] 4 [place] VISC[place] 2 00 (four) Medical % solution hours as Branc h needed for Oral mucosal pain. acyclovir 2022- Yes [id number] 800mg Take 1 Univers 800 mg 1-22 01-30 tablet by ity of tablet 00:00: 05:59 mouth 5 [place] 00 :00 (five) Medical times Branch daily for 7 days. pantoprazol Yes Take by Uni vers e sodium 6-27 mouth. ity of (PROTONIX 09:29: [place] ORAL) 55 Medical Branch pantoprazol Yes Take by Uni vers e sodium 6-27 mouth. ity of (PROTONIX 09:29: [place] ORAL) 55 Medical Branch pantoprazol Yes Take by Uni vers e sodium 6-27 mouth. ity of (PROTONIX 09:29: [place] ORAL) 55 Medical Branch naproxen Yes [id number] 500mg Take 1 Un [place] 500 mg 6-27 tablet by ity of tablet 00:00: mouth [place] 00 every 8 Medical (eight) Branch hours as needed for Pain (scale 4-6). naproxen Yes [id number] 500mg Take 1 Un [place] 500 mg 6-27 tablet by ity of tablet 00:00: mouth [place] 00 every 8 Medical (eight) Branch hours as needed for Pain (scale 4-6). naproxen Yes [id number] 500mg Take 1 Un [place] 500 mg 6-27 tablet by ity of tablet 00:00: mouth [place] 00 every 8 Medical (eight) Branch hours as needed for Pain (scale 4-6). naproxen Yes [id number] 500mg Take 1 Un [place] 500 mg 6-27 tablet by ity of tablet 00:00: mouth [place] 00 every 8 Medical (eight) Branch hours as needed for Pain (scale 4-6). Vital Signs Vital Name Observation Time Observation Value Comments Source Systolic blood 2022-03-22 15:47:00 143 mm[Hg] [facility] Diastolic blood 2022-03-22 15:47:00 88 mm[Hg] [facility] Heart rate 2022-03-22 15:47:00 83 /min Universi ty [facility] Body temperature 2022-03-22 15:47:00 37.11 Kerry [facility] Respiratory rate 2022-03-22 15:47:00 20 /min [facility] Body height 2022-03-22 15:47:00 167.6 cm Universi ty [facility] Body weight 2022-03-22 15:47:00 78.245 kg Universi ty [facility] BMI 2022-03-22 15:47:00 27.84 kg/m2 [facility] saturation in 2022-03-22 15:47:00 99 /min [facility] Arterial blood by [facility] Pulse oximetry Branch Systolic blood 2021-08-25 14:28:00 153 mm[Hg] [facility]iver [facility] Diastolic blood 2021-08-25 14:28:00 81 mm[Hg] Unive [facility] Heart rate 2021-08-25 14:28:00 68 /min Universi ty [facility] Body temperature 2021-08-25 14:28:00 36.5 [facility] 2021-08-25 14:28:00 17 /min [facility] Body height 2021-08-25 14:28:00 165.1 cm Universi ty [facility] Body weight 2021-08-25 14:28:00 79.833 kg Universi ty [facility] BMI 2021-08-25 14:28:00 29.29 kg/m2 Universi ty of [facility] Oxygen saturation in 2021-08-25 14:28:00 98 /min [facility] blood by [facility] Pulse oximetry Branch Procedures Procedure Date / Time Performed Performing Clinician Pasqualec e XR PELVIS <3 VW 2021-08-25 14:57:00 Ioana Harman [facility] ASSIGNMENT OF BENEFITS 2021-08-25 14:20:28 Doctor Unassigned, No [facility] Encounters Start End Encounter Admission Attending Care Care Encounter Source Date/Time Date/Time Type Type Clinicians Facility Department ID 2022-01-02 [facility] [id number] Common 08:18:01 [facility] [address] [facility] 2022-03-22 2022-03-22 Outpatient R [facility] [id number] Univers 09:40:00 10:15:36 OMAYEMI ity [facility] 2022-03-22 2022-03-22 Urgent [facility] [id number] Univers 09:40:00 10:15:36 Care Unknown, Attending HEALTH [id number] ity of [place] [id number] [place]av[place] as BRENT?BLEA [id number] [facility] [address] [facility] 2021-08-25 2021-08-25 [facility] [id number] Univers 09:48:33 23:59:00 Encounter [facility] [id number] ity of [place] [id number] [place] as BRENT?BLEA [id number] [facility] [address] MEDICAL OFFICE BUILDING 2021-08-25 2021-08-25 Outpatient R [facility] [id number] Univers 09:41:29 09:47:00 IOANA burton f [facility] 2021-08-25 2021-08-25 [facility] [id number] Univers 09:41:29 09:47:00 Encounter [facility] [id number] ity of [place] [id number] [place] as BRENT?BLEA [id number] [facility] [address] [place] MEDICAL OFFICE BUILDING 2021-08-25 2021-08-25 Urgent Ioana Harman [facility] [id number] Univers 09:20:00 09:40:00 Care [facility] [id number] ity of [place] [id number] [place]av[place] as BRENT?BLEA [id number] [facility] [address] MEDICAL OFF[address] BUILDING 2021-08-25 2021-08-25 Orders Doctor WILAL [id number] Univers 00:00:00 00:00:00 Only Unassigned, MEREDITH [id number] ity of Makena [facility] [id number] [place] as [id number] [place] [address] Branch Results This patient has no known results.
--- NOTE | 2022-03-24 09:33 | ER ---
Nurse's Notes [facility] Name: Nuria Galvan Age: 57 yrs Sex: Female : 1965 Arrival Date: 03/24/2022 Time: 08:45 Bed IW4 Private MD: Diagnosis: Herpesviral gingivostomatitis and pharyngotonsillitis;Hand, FOot, and mouth Presentation: 03/24 09:10 Chief complaint: Patient states: sores on hands and inside mouth that began on ss . Coronavirus screen: Client denies travel out of the [place] in the last 14 days. Ebola Screen: Patient denies exposure to infectious person. Patient denies travel to an Ebola-affected area in the 21 days before illness onset. Initial Sepsis Screen: Does the patient meet any 2 criteria? No. Patient's initial sepsis screen is negative. Does the patient have a suspected source of infection? No. Patient's initial sepsis screen is negative. Risk Assessment: Do you want to hurt yourself or someone else? Patient reports no desire to harm self or others. Onset of symptoms was March 19, 2022. 09:10 Method Of Arrival: Ambulatory ss 09:10 Acuity: SHELLIE 3 ss Historical: - Allergies: 09:12 No Known Allergies; ss - PMHx: 09:12 Diverticulitis; mitral valve prolapse; ss - Immunization history:: Client reports receiving the 1st dose of the Covid vaccine. - Social history:: Smoking status: Patient denies any tobacco usage or history of. Screenin:10 Abuse screen: Denies threats or abuse. Denies injuries from another. Nutritional ss screening: No deficits noted. Tuberculosis screening: Never had TB. Assessment: 09:10 General: Appears in no apparent distress. comfortable, Behavior is calm, cooperative, ss Denies fever. Pain: Complains of pain in tongue, hands L lower leg Pain currently is 8 out of 10 on a pain scale. Quality of pain is described as tender, Pain began x 1 week Is continuous. Neuro: Level of Consciousness is awake, alert, obeys commands. Cardiovascular: Capillary refill < 3 seconds is brisk in bilateral fingers. Respiratory: Airway is patent Respiratory effort is even, unlabored, Respiratory pattern is regular, symmetrical. Derm: Skin is intact, is healthy with good turgor, Skin is dry, Skin is pink, warm \T\ dry. normal. Derm: rash noted to hands and L lower leg. Musculoskeletal: Circulation, motion, and sensation intact. Range of motion: intact in all extremities. Vital Signs: 09:10 BP 146 / 73; Pulse 88; Resp 15; Temp 98.0(TE); Pulse Ox 99% on R/A; Weight 78.02 kg; ss Height 5 ft. 6 in. (167.64 cm); 09:10 Body Mass Index 27.76 (78.02 kg, 167.64 cm) ss ED Course: 08:45 Patient arrived in ED. as 08:57 Miryam Parks PA is PHCP. en 08:57 Toy Benton DO is Attending Physician. en 09:10 Patient has correct armband on for positive identification. ss 09:12 Triage completed. ss 09:12 Arm band placed on right wrist. ss 09:32 Jony Triplett DO is Referral Physician. en 09:46 Anya Alvarez RN is Primary Nurse. ss 09:46 No provider procedures requiring assistance completed. Patient did not have IV access ss during this emergency room visit. Administered Medications: 09:46 Drug: Ketorolac 30 mg Route: IM; Site: right gluteus; ss 09:46 Drug: Lortab Liquid 10 ml Route: PO; ss Medication: 09:10 VIS not applicable for this client. ss Outcome: 09:33 Discharge ordered by . en 09:46 Discharged to home ambulatory. ss 09:46 Condition: good 09:46 Discharge instructions given to patient, family, Instructed on discharge instructions, follow up and referral plans. Demonstrated understanding of instructions, follow-up care, medications, Prescriptions given X 1. 09:47 Patient left the ED. ss Signatures: Maria Luisa Loznao as Anya Alvarez RN RN ss Miryam Parks PA PA en
--- NOTE | 2022-03-24 09:33 | EDPHYS ---
Physician Documentation [facility] Name: Nuria Galvan Age: 57 yrs Sex: Female : 1965 Arrival Date: 03/24/2022 Time: 08:45 Bed IW4 Private MD: ED Physician Toy Benton HPI: 03/24 09:17 This 57 yrs old Female presents to ER via Ambulatory with complaints of en Swelling Of Tongue - sores, Hand Pain. 09:17 57-year-old female with no known medical history presents to ED with rash to bilateral en palms and soles of feet since as well as worsening rash in the mouth and tongue swelling with difficulty swallowing secondary to pain. Patient was seen at an outpatient clinic and prescribed viscous lidocaine and acyclovir for "shingles". Patient reports that she is able to swallow and is drinking soda as it just hurts. No fevers or chills. Historical: - Allergies: 09:12 No Known Allergies; ss - PMHx: 09:12 Diverticulitis; mitral valve prolapse; ss - Immunization history:: Client reports receiving the 1st dose of the Covid vaccine. - Social history:: Smoking status: Patient denies any tobacco usage or history of. ROS: 09:17 Constitutional: Negative for fever, chills, and weight loss. en 09:17 ENT: Positive for Significant oropharyngeal lesions and pain. 09:17 All other systems are negative. 09:17 Skin: Positive for Raised erythematous rash to palms and soles of feet. en Exam: 09:17 Constitutional: The patient appears Visibly uncomfortable secondary to pain but en well-hydrated 09:17 ENT: Malodorous breath with significant stomatitis also involving the tongue with mild secondary thrush. She is handling secretions without drooling. 09:17 Neck: 09:17 Cardiovascular: Rate: normal, Rhythm: regular, Heart sounds: normal, no rub. 09:17 Respiratory: the patient does not display signs of respiratory distress, Respirations: normal, no use of accessory muscles, no grunting, Breath sounds: are clear throughout, no rales, rhonchi, no stridor, no wheezing. 09:17 Skin: Raised erythematous rash to palms and feet. No other rash. Vital Signs: 09:10 BP 146 / 73; Pulse 88; Resp 15; Temp 98.0(TE); Pulse Ox 99% on R/A; Weight 78.02 kg; ss Height 5 ft. 6 in. (167.64 cm); 09:10 Body Mass Index 27.76 (78.02 kg, 167.64 cm) ss MDM: 09:17 Differential diagnosis: Patient with raised erythematous rash to palms, soles of feet, en perioral and significant stomatitis. No other rash. No previous history of STD or genital rash to be concerned for syphilis. This is not consistent with shingles as thought by outpatient work-up. Exam is consistent with liel-ubkw-nfe-mouth disease with a significant stomatitis component. Data reviewed: vital signs, old medical records, Outside prescriptions and medical record reviewed brought by the patient showing a diagnosis of shingles and given viscous lidocaine and p.o.'s acyclovir without and as a result, I will Spoke with patient regarding options for IV fluids. Although she does appear uncomfortable, she is not dehydrated appearing. Labs were considered but not warranted at this time. Patient declined IV fluids but she is amenable to IM Toradol and p.o. Lortab elixir for pain.. I considered the following discharge prescriptions or medication management in the emergency department Medications were administered in the Emergency Department. See MAR. Test considered but Not performed: Labs: Not warranted at this time. No evidence of dehydration and patient is handling her secretions. External Records Reviewed: Outpatient record: See above ED course. ED course: Will DC home patient with Magic mouthwash and continued acyclovir with ENT follow-up.. 09:33 Patient medically screened. en Administered Medications: 09:46 Drug: Ketorolac 30 mg Route: IM; Site: right gluteus; ss 09:46 Drug: Lortab Liquid 10 ml Route: PO; ss Disposition: 18:43 Co-signature as Attending Physician, Toy Benton DO I reviewed the patient's care ms3 provided by the Advanced Practice Provider and agree with the diagnosis and treatment plan. Disposition Summary: 03/24/22 09:33 Discharge Ordered Location: Home en Problem: new en Symptoms: are unchanged en Condition: Stable en Diagnosis - Herpesviral gingivostomatitis and pharyngotonsillitis en - Hand, FOot, and mouth en Followup: en - With: Jony Triplett DO - When: 1 - 2 days - Reason: Discharge Instructions: - Discharge Summary Sheet en - Stomatitis, Dmgd-no-Qhfm en - Hand, Foot, and Mouth Disease, Adult en Forms: - Medication Reconciliation Form en - Thank You Letter en - Antibiotic Education en - Prescription Opioid Use en Prescriptions: - MAGIC mouthwash - take 5 milliliter by ORAL route 4 times per day; 250 milliliter; Refills: 0, en Product Selection Permitted Signatures: Anya Alvarez RN RN ss Toy Benton DO DO ms3 Miryam Parks PA PA en
[2022-03-24] MEDS ORDERED: HYDROCOD 2.5mg-ACETAMIN 108mg/5mL Soln ONE (09:36)
[2022-03-24] MEDS ORDERED: KETOROLAC 30 MG/ML INJ ONE (09:36)
[2022-03-24 10:57] VITALS: BP 146/73; TEMP 98; O2SAT 99
== END 2022-03-24 09:47 | disposition home or self-care (01) ==
LOC: ER 08:43
DX: B00.2 Herpesviral gingivostomatitis and pharyngotonsillitis (principal); B08.4 Enteroviral vesicular stomatitis with exanthem
CPT/HCPCS: 96372; 99283

== ENCOUNTER 2024-12-16 20:48 | Observation (INO) | payer OTHER ==
--- OUTSIDE RECORDS SUMMARY | 2024-12-16 20:51 | XMS REPORT | Continuity of Care Document ---
Author Name Unknown Address [address] [place] [address] [facility] Address [address] [place] [address] Care Team Providers Care Director Of Employer Services Name Role Phone Jony Triplett Felicity Primary Care Physician [phone] Triplett Jony M Attending Clinician Unavailable Doctor Unassigned, Oradell Attending Clinician U SEB Bojorquez Attending Clinician Unavailable Seb Jones MD Attending Clinician [phone] Elizabeth Britt Attending Clinician [phone] Unknown, Attending Attending Clinician Unavailab le Doctor Unassigned, [place]ell Attending Clinician U JEY Mon Attending Clinician Jey Ashley MD Attending Clinician [phone] DAVID HANKINS Attending Clinician UnavailDavid Abreu Attending Clinician [phone] Unknown, Attending Attending Clinician Unavailab Ioana Juares Attending Clinician [phone] IOANA HARMAN Attending Clinician Seb Barrera MD Attending Clinician [phone] JEY KELLY Admitting Clinician Unavaildrea e Payers Payer Name Policy Type Policy Number Effective Date Expirati on Date Source ARTHUR CHE [id number] 2023 00:00:00 Problems Condition Name Condition Details Condition Category Status Onset Date Resolution Date Last Treatment Date Treating Clinician Comments Source No known active problems No known active problems Disease [facility] Allergies, Adverse Reactions, Alerts Allergy Name Allergy Type Status Severity Reaction(s) Onset Date Inactive Date Treating Clinician Comments Source NO KNOWN ALLERGIE S Drug Class Active [facility] Social History Social Habit Start Date Stop Date Quantity Comments [facility] 2024-03-03 00:00:00 2024-03-03 00:00:00 [facility] Exposure to SARS-CoV-2 (event) 2022-03-12 00:00:00 2022-03-22 09:45:00 Not sure [facility] Tobacco use and exposure 2021-08-25 00:00:00 2021-08-25 00:00:00 Smokeless tobacco non-user [facility] Sex assigned at 1965 00:00:00 1965 00:00:00 [facility] Smoking Status Start Date Stop Date Source Unknown if ever smoked [facility] Never smoked tobacco [facility] Medications Ordered Medication Name Filled Medication Name Start Date Stop Date Current Medication? Ordering Clinician Indication Dosage Frequency Signature (SIG) Comments Components Source acetaminoph en (TYLENOL) tablet 650 mg 03-03 22:15: 00 03-03 21:19 :00 No [id number] 650mg 650 mg, Oral, ONCE, 1 dose, On Wed03/03/24 at 1615, Routine [facility] ibuprofen (IBU) tablet 600 mg 03-03 22:00: 00 03-03 21:20 :00 No [id number] 600mg 600 mg, Oral, ONCE, 1 dose, On Wed03/03/24 at 1600, Routine [facility] Nitrofurant oin&Nit. Macrocryst 100 mg capsule 03-03 00:00: 00 03-03 00:00 :00 No [id number] 100mg Take 1 capsule by mouth in the morning and 1 capsule in the evening. [facility] ondansetron 4 mg disintegrat ing tablet 03-03 00:00: 00 03-03 00:00 :00 No [id number] 4mg Take 1 tablet by mouth every 12 (twelve) hours as needed for Nausea and Vomiting (N/V). [facility] benzonatate 100 mg capsule 03-03 00:00: 00 03-03 00:00 :00 No [id number] 200mg Take 2 capsules by mouth every 8 (eight) hours as needed for Cough. [facility] pantoprazol e sodium (PROTONIX ORAL) 03-22 09:49: 02 Yes Take by mouth. [facility] lidocaine 2% viscous (LIDOCAINE VISCOUS) 2 % solution 03-22 00:00: 00 Yes [id number] 15mL Take 15 mL by mouth every 4 (four) hours as needed for Oral mucosal pain. [facility] acyclovir 800 mg tablet 03-22 00:00: 00 03-30 05:59 :00 No [id number] 800mg Take 1 tablet by mouth 5 (five) times daily for 7 days. [facility] pantoprazol e sodium (PROTONIX ORAL) 08-25 09:29: 55 Yes Take by mouth. [facility] naproxen 500 mg tablet 08-25 00:00: 00 Yes [id number] 500mg Take 1 tablet by mouth every 8 (eight) hours as needed for Pain (scale 4-6). [facility] Vital Signs Vital Name Observation Time Observation Value Comments S steve Systolic blood pressure 2024-03-03 20:44:00 162 mm[Hg] [facility] Diastolic blood pressure 2024-03-03 20:44:00 83 mm[Hg] [facility] Body height 2024-03-03 20:39:00 172.7 cm [facility] Body weight 2024-03-03 20:39:00 83.099 kg [facility] BMI 2024-03-03 20:39:00 27.86 kg/m2 [facility] Oxygen saturation in Arterial blood by Pulse oximetry 2024-03-03 20:39:00 99 /min [facility] Heart rate 2024-03-03 20:39:00 115 /min [facility] Body temperature 2024-03-03 20:39:00 38.56 Kerry [facility] Respiratory rate 2024-03-03 20:39:00 22 /min [facility] Systolic blood pressure 2022-03-22 15:47:00 143 mm[Hg] [facility] Diastolic blood pressure 2022-03-22 15:47:00 88 mm[Hg] [facility] Heart rate 2022-03-22 15:47:00 83 /min [facility] Body temperature 2022-03-22 15:47:00 37.11 Kerry [facility] Respiratory rate 2022-03-22 15:47:00 20 /min [facility] Body height 2022-03-22 15:47:00 167.6 cm [facility] Body weight 2022-03-22 15:47:00 78.245 kg [facility] BMI 2022-03-22 15:47:00 27.84 kg/m2 [facility] Oxygen saturation in Arterial blood by Pulse oximetry 2022-03-22 15:47:00 99 /min [facility] Systolic blood pressure 2021-08-25 14:28:00 153 mm[Hg] [facility] Diastolic blood pressure 2021-08-25 14:28:00 81 mm[Hg] [facility] Heart rate 2021-08-25 14:28:00 68 /min [facility] Body temperature 2021-08-25 14:28:00 36.5 Kerry [facility] Respiratory rate 2021-08-25 14:28:00 17 /min [facility] Body height 2021-08-25 14:28:00 165.1 cm [facility] Body weight 2021-08-25 14:28:00 79.833 kg [facility] BMI 2021-08-25 14:28:00 29.29 kg/m2 [facility] Oxygen saturation in Arterial blood by Pulse oximetry 2021-08-25 14:28:00 98 /min [facility] Procedures Procedure Date / Time Performed Performing Clinicia n Source POCT MOLECULAR FLU 2024-03-03 20:51:00 Unknown, Attend ing [facility] POCT URINALYSIS 2024-03-03 20:49:00 [facility]RESPONSE 2023-08-20 18:57:35 Doctor Unassigned, Oradell [facility] CONSENT/REFUSAL FOR DIAGNOSIS AND TREATMENT 2022-04-13 20:06:11 Doctor Unassigned, Oradell [facility] ASSIGNMENT OF BENEFITS 2022-04-13 20:05:54 Docto r Unassigned, Oradell [facility] XR PELVIS <3 VW 2021-08-25 14:57:00 Ioana Harman [facility] ASSIGNMENT OF BENEFITS 2021-08-25 14:20:28 Docto r Unassigned, Oradell [facility] Encounters Start Date/Time End Date/Time Encounter Type Admission Type Attending Clinicians Care Facility Care Department Encounter ID Source 2023-11-22 16:10:00 [id number] [facility] 2023-11-18 09:26:00 [facility] [id number] [facility] 2022-11-27 07:58:01 [facility] [id number] [facility] 2022-11-23 10:45:00 [facility] [id number] [facility] 2022-11-18 13:11:00 [facility] [id number] [facility] 2022-07-28 16:52:01 [facility] [id number] [facility] 2022-06-18 10:05:02 Outpatient Jony Triplett [facility] [id number] [facility] 2022-01-02 08:18:01 Outpatient Jony Triplett [facility] [id number] [facility] 2023-08-20 00:00:00 2024-04-15 07:28:57 Orders Only Doctor Unassigned, [place]adell Doctor Unassigned, Oradell [facility] [id number] [id number] [id number] [facility] 2024-03-03 14:20:00 2024-03-03 15:17:41 Outpatient R SEB JONES [facility] [id number] [facility] 2024-03-03 14:20:00 2024-03-03 15:17:41 Urgent Care Seb Jones, Elizabeth Unknown, Attending [facility] 1.0.114 [id number] [id number] [id number] [facility] 2023-08-25 00:00:00 2023-09-25 18:19:24 Patient Secure Msg Doctor Unassigned, Oradell [facility] [id number] [id number] [id number] [id number] [facility] 2022-04-13 14:05:44 2022-04-13 23:59:00 Outpatient R JEY KELLY [facility] [id number] [facility] 2022-04-13 14:05:44 2022-04-13 23:59:00 Hospital Encounter Jey Kelly [facility] [id number] [id number] 4.2.7.2.686 [id number] [facility] 2022-03-22 09:40:00 2022-03-22 10:15:36 Outpatient R DAVID HANKINS [facility] [id number] [facility] 2022-03-22 09:40:00 2022-03-22 10:15:36 Urgent Care David Hankins Unknown, Attending [facility] [id number] [id number] 4.2.7.2.686 [id number] [facility] 2021-08-25 09:48:33 2021-08-25 23:59:00 Hospital Encounter Ioana Harman [facility] 1.84.114 [id number] 4.2.7.2.686 [id number] [facility] 2021-08-25 09:41:29 2021-08-25 09:47:00 Outpatient R IOANA HARMAN [facility] [id number] [facility] 2021-08-25 09:41:29 2021-08-25 09:47:00 Hospital Encounter Radha Harmantany [facility] 1.84.114 [id number] 4.2.7.2.686 [id number] [facility] 2021-08-25 09:20:00 2021-08-25 09:40:00 Urgent Care Ioana Harman Seb Jones [facility] 1.84.114 [id number] 4.2.7.2.686 [id number] [facility] 2021-08-25 00:00:00 2021-08-25 00:00:00 Orders Only Doctor Unassigned, Oradell [facility] 1.2114 350.1.13.10 4.2.7.2.686 [id number] [facility] Results Test Description Test Time Test Comments Results Result Co mments Source [facility] Specific [id number] 20:49:00* Test Item Value Reference Range Interpretation Comme nts POCT U SP GRAV (test code = 3255) 1.020 mg/dl 1.005-1.025 POCT PH U (test code = 3254) 6 mg/dl 5-8 POCT U LEUK EST (test code = 3263) + Negative - Negative POCT U NIT (test code = 3262) neg Negative - Negati ve POCT U PROT (test code = 3259) trace Negative - Negative POCT U GLU (test code = 3256) norm Negative - Negati ve POCT U KETONE (test code = 3258) neg Negative - Negative POCT U UROBILI (test code = 3260) 1 mg/dl 0.2-1 POCT U BILI (test code = 3261) + Negative - Negative POCT U BLD (test code = 3257) trace Negative - Negati ve POCT U COLOR (test code = 3266) yellow POCT U APPEAR (test code = 3267) coudy Lab Interpretation (test cod e = [id number]) Abnormal [facility][id number] 18:57:35 Ordered by an unspecified provider.[facility]
--- NOTE | 2024-12-16 22:12 | RAD REPORT ---
EXAMINATION: ONE VIEW CHEST XR CLINICAL INDICATION: CHEST PAIN TECHNIQUE: Frontal chest projection is submitted. Examination is limited by patient positioning and t echnique. COMPARISON: 06/20/2017 FINDINGS: Mild linear atelectasis in the right midlung and left lung base noted. The heart is mildly enlarged i n size. No displaced fractures identified.
[2024-12-16] MEDS ORDERED: ASPIRIN 81 MG CHEWABLE TABLET ONE (22:53)
[2024-12-16] MEDS ORDERED: NA CHLORIDE 0.9% 1,000 ML ONE (22:53)
[2024-12-16 23:59] LABS: Absolute Lymphocytes (CBC) 1.9 K/uL (0.7-4.9); Hematocrit 41.7 % (36.0-45.0); Hemoglobin 14.1 g/dL (12.0-15.0); MCH 29.0 pg (27.0-35.0); MCHC 33.9 g/dL (32.0-36.0); MCV 85.5 fL (80-100); MPV 7.6 fL (7.6-11.3); Nucleated RBC Absolute Count 0.0 (0-0); Nucleated Red Blood Cells % 0.2 % (0-0); RBC Red Blood Cell Count 4.88 M/uL (3.86-4.86); White Blood Count 7.00 thou/uL (4.3-10.9)
[2024-12-17 00:06] LABS: PT Prothrombin Time 10.2 SECONDS (10-13.0); Protime INR 0.9
[2024-12-17 00:17] LABS: ALT/SGPT 29.0 U/L (13-56); AST/SGOT 11.0 U/L (15-37); Albumin 3.6 g/dL (3.4-5.0); Albumin/Globulin Ratio 1.0 (1.1-1.8); Alkaline Phosphatase 118.0 U/L (45-117); Anion Gap 9.1 mEq/L (5.0-15.0); BUN Blood Urea Nitrogen 12.0 mg/dL (7-18); Bilirubin Indirect, Calculated 0.7 mg/dL (0.2-0.8); Globulin 3.7 g/dL (2.3-3.5); Glucose Level 117.0 mg/dL (74-106); Magnesium 2.3 mg/dL (1.6-2.4); NT PRO-BNP 20.0 pg/mL (<125); Potassium 3.1 mEq/L (3.5-5.1); Troponin High Sensitivity 3.3 pg/mL (<58.9)
[2024-12-17] MEDS ORDERED: POTASSIUM 25 MEQ EFFERV TAB ONE (02:04)
[2024-12-17] MEDS ORDERED: POTASSIUM CL SA 10 MEQ TAB PO ONE (02:07)
--- NOTE | 2024-12-17 03:40 | RAD REPORT ---
EXAM DESCRIPTION: Chest For Pe Angio CLINICAL HISTORY: CHEST PAIN COMPARISON: None Available. TECHNIQUE: CTA of the chest obtained following the uncomplicated intravenous administration of iodina heriberto contrast. 3-D/MIP reformatted images of the chest available for evaluation. This exam was performed according to our departmental dose-optimization program, which includes automated exposure control, adjustment of the mA and/or kV according to patient size and/or use of iterative reconstruction technique. FINDINGS: Chest: Pulmonary arteries: Contrast bolus is adequate.No filling defects identified in the pulmonary arterie s to suggest pulmonary embolus. Thyroid: No abnormalities of the visualized thyroid. Great Vessels: Great vessels have normal anatomic configuration. Thoracic Aorta: No abnormalities of the thoracic aorta identified. No aortic dissection. Heart: No cardiomegaly, significant pericardial effusion, or coronary artery atherosclerosis Lymph Nodes: No enlarged mediastinal lymph nodes identified. Esophagus: No abnormalities of the esophagus identified. Other: No additional findings. Lungs: Mild dependent atelectasis. Ill-defined lobulated nodular opacity in the superior segment of t he left lower lobe measuring 2.5 cm. Pleura: No pleural effusion or pneumothorax. Trachea/Airways: No abnormalities of the visualized trachea or airways. Bones: No acute osseous abnormalities identified. Upper Abdomen: Limited images of the upper abdomen demonstrate no definite abnormalities of visualize d portions of the gallbladder, pancreas, spleen, adrenal glands, or kidneys. Decreased density of the liver. IMPRESSION: 1. No pulmonary embolus. 2. Ill-defined lobulated nodular opacity in the superior segment of the left lower lobe measuring 2 .5 cm. This may be related to an infectious or inflammatory process however neoplasm could also produce this appearance. Short interval follow-up CT of the chest with contrast in 6-12 weeks recomme nded. If nodule persists PET/CT or tissue sampling would be recommended. 3. Hepatic steatosis. Electronically signed by: Matt Reid DO 12/17/2024 03:36 AM CDT 4ZDM Due to temporary technical issues with the PACS/[employer] reporting system, reports are being manuel d by the in-house radiologist without review as a courtesy to ensure prompt reporting the interpreting radiologist is fully responsible for the content of the report. Transcribed Date/Time: 12/17/2024 3:40 AM
--- NOTE | 2024-12-17 04:06 | EDPHYS ---
Physician Documentation [facility] Name: Nuria Galvan Age: 59 yrs Sex: Female : 1965 Arrival Date: 12/16/2024 Time: 20:48 Bed 17 Private MD: ED Physician Sam Enriquez HPI: 12/16 23:42 This 59 yrs old Female presents to ER via Ambulatory with complaints of Chest Pain, sb4 Shortness Of Breath, Headache. 23:42 Patient reports intermittent chest pain for about 5 days now. She states that initially sb4 it only came on with exertion and certain movements, but would resolve with rest. She states now it is more frequent and intense. Denies any cardiac history, states she does have mitral valve prolapse but it has been monitored. States she has had negative cardiac workups in the past. Denies any history of hypertension, hyperlipidemia, diabetes, does not smoke. She states the pain feels like squeezing and sharp and radiates to her left arm. Denies any nausea, vomiting, dizziness, diaphoresis. Historical: - Allergies: 21:06 No Known Drug Allergies; me1 - PMHx: 21:06 Diverticulitis; mitral valve prolapse; me1 - PSHx: 21:06 Cholecystectomy; colon removal; tubal ligation; me1 - Immunization history:: Adult Immunizations up to date. - Infectious Disease History:: Denies. - Social history:: Smoking status: Patient denies any tobacco usage or history of. ROS: 23:42 Constitutional: Negative for fever, chills, and weight loss, sb4 23:42 Cardiovascular: Positive for chest pain, 23:42 All other systems are negative, Exam: 23:42 Constitutional: This is a well developed, well nourished patient who is awake, alert, sb4 and in no acute distress. Head/Face: Normocephalic, atraumatic. Eyes: Extra-ocular motions intact. Periorbital areas with no swelling, redness, or edema. ENT: Mucous membranes moist. Respiratory: No increased work of breathing, no retractions or nasal flaring. Abdomen/GI: Soft, non-tender, no distension. Skin: Warm, dry with normal turgor. Normal color with no rashes, no lesions, and no evidence of cellulitis. 23:42 Cardiovascular: Rate: tachycardic, Rhythm: regular, Vital Signs: 21:04 BP 162 / 66; Pulse 108; Resp 18; Temp 98.6; Pulse Ox 99% ; Weight 81.65 kg; Height 5 me1 ft. 8 in. ; Pain 5/10; 21:15 BP 148 / 72; Pulse 91; Resp 18; Pulse Ox 96% ; rg5 22:00 BP 151 / 73; Pulse 96; Resp 18; Pulse Ox 97% ; rg5 23:00 BP 147 / 65; Pulse 90; Resp 18; Pulse Ox 98% ; rg5 12/17 00:31 BP 141 / 69; Pulse 72; Resp 15; Pulse Ox 97% ; Pain 0/10; kt5 01:40 BP 146 / 69; Pulse 66; Resp 18; Pulse Ox 99% ; Pain 0/10; kt5 02:52 BP 140 / 75; Pulse 63; Resp 19; Pulse Ox 99% ; kt5 04:01 BP 130 / 63; Pulse 67; Resp 18 S; Pulse Ox 97% on R/A; ha1 05:30 BP 135 / 65; Pulse 65; Resp 18 S; Temp 98.4(O); Pulse Ox 99% on R/A; ha1 12/16 21:04 Body Mass Index 27.37 (81.65 kg, 172.72 cm) me1 12/16 21:04 Pain Scale: Adult me1 12/17 00:31 Pain Scale: Adult kt5 01:40 Pain Scale: Adult kt5 MDM: 12/16 20:52 Medical Screening Exam initiated sb4 12/17 03:41 ED course: CLINICAL INDICATION: CHEST PAIN TECHNIQUE: Frontal chest projection is sp4 submitted. Examination is limited by patient positioning and technique. COMPARISON: 06/20/2017 FINDINGS: Mild linear atelectasis in the right midlung and left lung base noted. The heart is mildly enlarged in size. No displaced fractures identified. . 03:45 Differential diagnosis: acute pericarditis, anxiety, chest wall pain, cholecystitis, sp4 Cholelithiasis costochondritis, esophagitis, gastritis. Data reviewed: vital signs, nurses notes, radiologic studies. ED course: Chest: Pulmonary arteries: Contrast bolus is adequate.No filling defects identified in the pulmonary arteries to suggest pulmonary embolus. Thyroid: No abnormalities of the visualized thyroid. Great Vessels: Great vessels have normal anatomic configuration. Thoracic Aorta: No abnormalities of the thoracic aorta identified. No aortic dissection. Heart: No cardiomegaly, significant pericardial effusion, or coronary artery atherosclerosis Lymph Nodes: No enlarged mediastinal lymph nodes identified. Esophagus: No abnormalities of the esophagus identified. Other: No additional findings. Lungs: Mild dependent atelectasis. Ill-defined lobulated nodular opacity in the superior segment of the left lower lobe measuring 2.5 cm. Pleura: No pleural effusion or pneumothorax. Trachea/Airways: No abnormalities of the visualized trachea or airways. Bones: No acute osseous abnormalities identified. Upper Abdomen: Limited images of the upper abdomen demonstrate no definite abnormalities of visualized portions of the gallbladder, pancreas, spleen, adrenal glands, or kidneys. Decreased density of the liver. IMPRESSION: 1. No pulmonary embolus. 2. Ill-defined lobulated nodular opacity in the superior segment of the left lower lobe measuring 2.5 cm. This may be related to an infectious or inflammatory process however neoplasm could also produce this appearance. Short interval follow-up CT of the chest with contrast in 6-12 weeks recommended. If nodule persists PET/CT or tissue sampling would be recommended. 3. Hepatic steatosis. Due to temporary technical issues with the PACS/[employer] reporting system, reports are being signed by the in-house radiologist without review as a courtesy to ensure prompt reporting the interpreting radiologist is fully responsible for the content of the report. Transcribed Date/Time: 12/17/2024 3:40 AM. 03:59 HEART Score: History: Moderately Suspicious (1), ECG: Non specific repolarization sp4 disturbance / LBTB / PM (1), Age: > 45 and < 65 years (1), Risk Factors: No Risk Factors Known (0), Troponin: < or = 1 x Normal Limit (0), Total Score = 3. The patient was given aspirin in the Emergency Department. 04:06 ED course: There is a right midlung opacification, also there is nodular opacity sp4 superior segment left lower lobe measuring 2.5 cm, described as lobulated nodular opacity in the superior segment of the left lower lobe measuring 2.5 cm, may be related to infectious or inflammatory process however neoplasm could also produce this appearance. Patient was advised to have follow-up CT chest with contrast within 6 weeks. Will give trial of Zithromax. . ED course: Otherwise exertional chest pain would require further workup in the hospital . Dr. Jackman requested to admit patient with consultation to Dr. Jones with Cardiology . 04:52 Consideration of Admission/Observation Patient was admitted/placed on observation. sp4 Escalation of care including admission/observation considered. Management of patient was discussed with the following: Hospitalist: Gasper ARRIAGA. Taper And Floater: Karen ARRIAGA. 12/16 21:08 Order name: Basic Metabolic Panel; Complete Time: 00:18 sb4 12/16 21:08 Order name: CBC with Diff; Complete Time: 00:05 sb4 12/16 21:08 Order name: LFT's; Complete Time: 00:18 sb4 12/16 21:08 Order name: Magnesium; Complete Time: 00:18 sb4 12/16 21:08 Order name: NT PRO-BNP; Complete Time: 00:18 sb4 12/16 21:08 Order name: PT-INR; Complete Time: 00:06 sb4 12/16 21:08 Order name: Troponin HS; Complete Time: 00:18 sb4 12/17 03:45 Order name: Troponin High Sensitivity 4 12/17 04:06 Order name: Blood Culture Adult (2) 4 12/17 04:50 Order name: CBC with Automated Diff EDMS 12/17 04:50 Order name: CBC with Automated Diff EDMS 12/17 04:50 Order name: Comprehensive Metabolic Panel EDMS 12/17 04:50 Order name: Comprehensive Metabolic Panel EDMS 12/17 04:50 Order name: Lipid Profile EDMS 12/17 04:50 Order name: Lipid Profile EDMS 12/17 04:50 Order name: Troponin High Sensitivity EDMS 12/17 04:50 Order name: Troponin High Sensitivity; Complete Time: 14:05 EDMS 12/17 04:50 Order name: Troponin High Sensitivity EDMS 12/17 04:50 Order name: Troponin High Sensitivity EDMS 12/16 21:08 Order name: XRAY Chest (1 view); Complete Time: 22:14 sb4 12/17 00:25 Order name: Chest For PE Angio CT; Complete Time: 03:45 sb4 12/17 04:51 Order name: Echo with Doppler EDMS 12/16 21:08 Order name: Cardiac monitoring; Complete Time: 21:22 sb4 12/16 21:08 Order name: EKG - Nurse/Tech; Complete Time: : sb4 12/16 21:08 Order name: IV Saline Lock; Complete Time: 23: sb4 12/16 21:08 Order name: Labs collected and sent; Complete Time: 23: sb4 12/16 21:08 Order name: O2 Per Protocol; Complete Time: 23: sb4 12/16 21:08 Order name: O2 Sat Monitoring; Complete Time: 23: sb4 EC/18 21: Rate is 111 beats/min. Rhythm is regular, Normal Sinus Rhythm with Right bundle branch sb4 block. RI interval is normal at 156 msec. QRS interval is normal at 138 msec. QT interval is normal at 370 msec. No Q waves. T waves are Normal. No ST changes noted. Clinical impression: No evidence of ischemia. Interpreted by me. Reviewed by me. Administered Medications: 23:07 Drug: Aspirin PO Chewable Tablet 324 mg PO once; 81 mg tablets x 4 Route: PO; rg5 23:52 Follow up: Response: No adverse reaction rg5 23:07 Drug: NS 0.9% IV 1000 ml IV at 1 bolus Per protocol; to be given as a bolus over 60 rg5 minutes Route: IV; Rate: 1 bolus; Site: right forearm; 12/17 06:04 Follow up: Response: No adverse reaction; IV Status: Completed infusion ha1 02:10 Drug: Potassium Chloride PO 40 mEq PO once Route: PO; ss12 03:00 Follow up: Response: No adverse reaction ha1 05:28 Drug: AZITHromycin PO 500 mg PO once Route: PO; ha1 06:00 Follow up: Response: No adverse reaction ha1 05:28 Drug: Acetaminophen PO 1000 mg PO once Route: PO; ha1 06:03 Follow up: Response: No adverse reaction; Marked relief of symptoms; Pain is decreased ha1 Disposition: 12/16 23:39 Co-signature as Attending Physician, Sam Enriquez MD I agree with the assessment sp4 and plan of care. I reviewed the patient's care provided by Advanced Practice Provider \T\ agree w/ the diagnosis \T\ care plan. I personally saw the pt \T\ performed a substantive portion of the visit, incldng all aspects of the (History/Exam/Medical Decision Making). 12/17 14:05 Chart complete. sb4 Disposition Summary: 12/17/24 04:05 Hospitalization Ordered Notes: Hospitalization Status: Inpatient Admission sp4 Provider: Ken Jackman sp4 Location: Telemetry/MedSurg (Inpatient) sp4 Condition: Stable sp4 Problem: new sp4 Symptoms: have improved sp4 Bed/Room Type: Standard sp4 Room Assignment: 203(12/17/24 04:56) rv1 Diagnosis - Unstable angina sp4 Forms: - Medication Reconciliation Form sp4 - SBAR form sp4 - Leadership Thank You Letter sp4 Signatures: Dispatcher [employer] EDMS Nazia Mann, RN RN ha1 Radha Montero PA-C PAChucho sb4 Cara Mejia rv1 Sam Enriquez MD MD sp4 Hope Ramirez RN RN me1 Remy Santiago RN RN rg5 Inocencio Painter RN RN ss12 Corrections: (The following items were deleted from the chart) 12/16 21:09 21:09 BASIC METABOLIC PANEL+C.LAB.BRZ ordered. EDMS EDMS 21: 21:09 CBC+H.LAB.BRZ ordered. EDMS EDMS 21:09 21:09 HEPATIC FUNCTION+C.LAB.BRZ ordered. EDMS EDMS 21: 21:09 MAGNESIUM+C.LAB.BRZ ordered. EDMS EDMS 21:09 21:09 PROBNP+C.LAB.BRZ ordered. EDMS EDMS 21: 21:09 PROTIME (+INR)+COAG.LAB.BRZ ordered. EDMS EDMS 21: 21:09 Troponin High Sensitivity+C.LAB.BRZ ordered. EDMS EDMS 21:09 21:09 Chest Single View+RAD.RAD.BRZ ordered. EDLA EDLA 12/17 04:56 04:05 sp4 rv1
--- NOTE | 2024-12-17 04:06 | ER ---
Nurse's Notes [facility] Name: Nuria Galvan Age: 59 yrs Sex: Female : 1965 Arrival Date: 12/16/2024 Time: 20:48 Bed 17 Private MD: Diagnosis: Unstable angina Presentation: 12/16 21:04 Chief complaint: Patient states: Starting Wednesday patient started having left sided me1 chest pain that radiated to left upper back and left upper arm with some sob that resolved with rest. Yesterday the pain became more severe and did not resolve with rest. At this time pain is 5/10, sharp and squeezing. Coronavirus screen: Vaccine status: Patient reports receiving the 2nd dose of the covid vaccine. Ebola Screen: No symptoms or risks identified at this time. Initial Sepsis Screen: Does the patient meet any 2 criteria? HR > 90 bpm. Does the patient have a suspected source of infection? No. Patient's initial sepsis screen is negative. Risk Assessment: Do you want to hurt yourself or someone else? Patient reports no desire to harm self or others. Onset of symptoms was December 11, 2024. 21:04 Method Of Arrival: Ambulatory pa1 21:04 Acuity: SHELLIE 3 me1 Historical: - Allergies: 21:06 No Known Drug Allergies; me1 - PMHx: 21:06 Diverticulitis; mitral valve prolapse; me1 - PSHx: 21:06 Cholecystectomy; colon removal; tubal ligation; me1 - Immunization history:: Adult Immunizations up to date. - Infectious Disease History:: Denies. - Social history:: Smoking status: Patient denies any tobacco usage or history of. Screenin:00 [facility] ED Fall Risk Assessment (Adult) History of falling in the last 3 months, rg5 including since admission No falls in past 3 months (0 pts) Confusion or Disorientation No (0 pts) Intoxicated or Sedated No (0 pts) Impaired Gait No (0 pts) Mobility Assist Device Used No (0 pt) Altered Elimination No (0 pt) Score/Fall Risk Level 0 - 2 = Low Risk Oriented to surroundings, Maintained a safe environment. Abuse screen: Denies threats or abuse. Nutritional screening: No deficits noted. Tuberculosis screening: No symptoms or risk factors identified. Assessment: 21:00 General: Appears in no apparent distress. uncomfortable, Behavior is calm, cooperative, rg5 appropriate for age. Pain: Complains of pain in chest Pain began gradually. Neuro: Level of Consciousness is awake, alert, obeys commands, Oriented to person, place, time, situation. Cardiovascular: Reports chest pain, shortness of breath, Patient's skin is warm and dry. Respiratory: Airway is patent Trachea midline Respiratory effort is even, unlabored. GI: Abdomen is round non-distended. : : No signs and/or symptoms were reported regarding the genitourinary system. EENT: No signs and/or symptoms were reported regarding the EENT system. Derm: Skin is intact, Skin is dry, Skin is normal, Skin temperature is warm. Musculoskeletal: Circulation, motion, and sensation intact. Range of motion: intact in all extremities. 22:00 Reassessment: Patient and/or family updated on plan of care and expected duration. Pain rg5 level reassessed. Patient is alert, oriented x 3, equal unlabored respirations, skin warm/dry/pink. 23:59 Reassessment: Patient and/or family updated on plan of care and expected duration. Pain rg5 level reassessed. Patient is alert, oriented x 3, equal unlabored respirations, skin warm/dry/pink. 12/17 00:31 General: received report from remy harrington, all questions answered. kt5 00:34 Reassessment: Patient appears in no apparent distress at this time. Patient and/or kt5 family updated on plan of care and expected duration. Pain level reassessed. Patient is alert, oriented x 3, equal unlabored respirations, skin warm/dry/pink. Patient states symptoms have improved. 00:43 General: pt to ct with tech. kt5 01:40 Reassessment: Patient appears in no apparent distress at this time. Patient and/or kt5 family updated on plan of care and expected duration. Pain level reassessed. Patient is alert, oriented x 3, equal unlabored respirations, skin warm/dry/pink. Patient states feeling better. Patient states symptoms have improved. 02:52 Reassessment: Patient appears in no apparent distress at this time. No changes from kt5 previously documented assessment. Patient and/or family updated on plan of care and expected duration. Pain level reassessed. Patient is alert, oriented x 3, equal unlabored respirations, skin warm/dry/pink. Patient denies pain at this time. Patient states feeling better. Patient states symptoms have improved. 03:50 Reassessment: Patient and/or family updated on plan of care and expected duration. Pain ha1 level reassessed. Patient is alert, oriented x 3, equal unlabored respirations, skin warm/dry/pink. 05:50 Reassessment: Patient and/or family updated on plan of care and expected duration. Pain ha1 level reassessed. Patient is alert, oriented x 3, equal unlabored respirations, skin warm/dry/pink. Vital Signs: 12/16 21:04 BP 162 / 66; Pulse 108; Resp 18; Temp 98.6; Pulse Ox 99% ; Weight 81.65 kg; Height 5 me1 ft. 8 in. ; Pain 5/10; 21:15 BP 148 / 72; Pulse 91; Resp 18; Pulse Ox 96% ; rg5 22:00 BP 151 / 73; Pulse 96; Resp 18; Pulse Ox 97% ; rg5 23:00 BP 147 / 65; Pulse 90; Resp 18; Pulse Ox 98% ; rg5 12/17 00:31 BP 141 / 69; Pulse 72; Resp 15; Pulse Ox 97% ; Pain 0/10; kt5 01:40 BP 146 / 69; Pulse 66; Resp 18; Pulse Ox 99% ; Pain 0/10; kt5 02:52 BP 140 / 75; Pulse 63; Resp 19; Pulse Ox 99% ; kt5 04:01 BP 130 / 63; Pulse 67; Resp 18 S; Pulse Ox 97% on R/A; ha1 05:30 BP 135 / 65; Pulse 65; Resp 18 S; Temp 98.4(O); Pulse Ox 99% on R/A; ha1 12/16 21:04 Body Mass Index 27.37 (81.65 kg, 172.72 cm) me1 12/16 21:04 Pain Scale: Adult me1 12/17 00:31 Pain Scale: Adult kt5 01:40 Pain Scale: Adult kt5 ED Course: 12/16 20:49 Patient arrived in ED. im 20:50 Radha Montero PA-C is PHCP. sb4 20:50 Sam Enriquez MD is Attending Physician. sb4 21:00 Patient has correct armband on for positive identification. Bed in low position. Call rg5 light in reach. Side rails up X 1. Client placed on continuous cardiac and pulse oximetry monitoring. NIBP monitoring applied. industrial engineering on. Pulse ox on. Door closed. Warm blanket given. 21:00 No provider procedures requiring assistance completed. Missed attempt(s): 22 gauge in rg5 left antecubital area. Patient maintains SpO2 saturation greater than 95% on room air. 21:06 Triage completed. me1 21:06 Arm band placed on Patient placed in an exam room. me1 21:23 EKG done, by ED staff, reviewed by Radha Montero PA-C. me1 21:50 Remy Santiago, RN is Primary Nurse. rg5 22:08 XRAY Chest (1 view) In Process Unspecified. EDMS 23:03 Inserted saline lock: 24 gauge in right forearm, using aseptic technique. Blood kmf collected. Flushed with 10 mL NS. 23:40 Inserted saline lock: 20 gauge in left antecubital area, using aseptic technique. Blood ha1 collected. Flushed with 10 mL NS Accessed peripheral vein via ultrasound, utilizing dynamic ultrasound technique. 12/17 01:06 Chest For PE Angio CT In Process Unspecified. EDMS 04:04 Ken Jackman MD is Hospitalizing Provider. sp4 06:02 Patient admitted, IV remains in place. ha1 06:03 Provided Education on: need for admit . ha1 Administered Medications: 12/16 23:07 Drug: Aspirin PO Chewable Tablet 324 mg PO once; 81 mg tablets x 4 Route: PO; rg5 23:52 Follow up: Response: No adverse reaction rg5 23:07 Drug: NS 0.9% IV 1000 ml IV at 1 bolus Per protocol; to be given as a bolus over 60 rg5 minutes Route: IV; Rate: 1 bolus; Site: right forearm; 12/17 06:04 Follow up: Response: No adverse reaction; IV Status: Completed infusion ha1 02:10 Drug: Potassium Chloride PO 40 mEq PO once Route: PO; ss12 03:00 Follow up: Response: No adverse reaction ha1 05:28 Drug: AZITHromycin PO 500 mg PO once Route: PO; ha1 06:00 Follow up: Response: No adverse reaction 1 05:28 Drug: Acetaminophen PO 1000 mg PO once Route: PO; ha1 06:03 Follow up: Response: No adverse reaction; Marked relief of symptoms; Pain is decreased ha1 Medication: 12/16 21:00 VIS not applicable for this client. rg5 Outcome: 12/17 04:05 Decision to Hospitalize by Provider. sp4 06:01 Admitted to Med/surg accompanied by nurse, via wheelchair, room 203, with chart, ha1 06:01 Condition: stable 06:01 Instructed on the need for admit, Demonstrated understanding of instructions, 06:05 Patient left the ED. ha1 Signatures: Dispatcher [employer] EDMS Nazia Mann, RN RN ha1 Radha Montero, PA-C PA-C Sam Carrillo MD MD sp4 Paola Garriosn Michelle, RN RN me1 [facility] Remy Santiago RN RN rg5 Inocencio Painter RN RN ss12 Aide Pagan RN RN kt5
[2024-12-17] MEDS ORDERED: ACETAMINOPHEN 500 MG TAB ONE (04:18)
[2024-12-17] MEDS ORDERED: AZITHROMYCIN 250 MG TAB ONE (04:22)
[2024-12-17] MEDS ORDERED: ONDANSETRON 4 MG/2 ML VIAL IV PRN (04:46)
--- NOTE | 2024-12-17 04:51 | P.HP ---
Certification for Inpatient Patient admitted to: Observation With expected LOS: <2 Midnights Practitioner: I am a practitioner with admitting privileges, knowledge of patient current condition, hospital course, and medical plan of care. Services: Services provided to patient in accordance with Admission requirements found in Title 42 Section 412.3 of the Code of Federal Regulations Patient History Date of Service: 12/17/24 Reason for admission: Chest Pain History of Present Illness: 59 yrs old Female with past medical history of mitral valve prolapse, diverticulosis, cholecystectomy, partial colectomy who came in with chest pain which has been going on for the last 5 days associated with some shortness of breath. Chest pain is located retrosternally with radiation to left arm, pressure-like feeling intermittent, 6 out of 10 in severity. Chest pain is not present at rest but occurs only with exertion and efforts. Denies any diaphoresis. No fever or chills. No sick contacts. No nausea vomiting or diarrhea. The patient was assessed in the ER and was admitted for further management of chest pain rule out ACS and possible effort angina. Allergies No Known Drug Allergies Allergy (Verified 10/07/16 19:23) Unknown No Known Allergies Allergy (Uncoded 06/20/17 13:47) Unknown Home medications list reviewed: Yes Home Medications: Pantoprazole Sodium [Protonix] 40 mg PO PRN PRN 06/20/17 Ciprofloxacin HCl [Cipro 500 MG Tablet] 500 mg PO BID #10 tab 06/23/17 Metronidazole 500 mg PO Q8HR #15 tablet 06/23/17 - Past Medical/Surgical History Diabetic: No Past Medical History: Reviewed- Non-Contributory -: Diverticulitis, previous colectomy left side -: Mitral valve prolapse -: GERD Past Surgical History: Reviewed- Non-Contributory -: Cholecystectomy -: Tubal ligation -: Colectomy left side-6 inches of intestine removed Psychosocial/ Personal History: She is of 30 years. She has 2 children. 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 - Family History Father -: Heart disease, Hypertension, Diabetes, Stroke Mother -: Lung disease, GI disease, Cancer Sister -: Seizures - Social History Smoking Status: Never smoker Alcohol use: No CD- Drugs: No Caffeine use: No Review of Systems 10-point ROS is otherwise unremarkable Physical Examination - Vital Signs Temperature: 97.2 F Blood Pressure: 126/78 Pulse: 76 Respirations: 18 Pulse Ox (%): 94 - Physical Exam General: Alert, In no apparent distress, Oriented x3 HEENT: Atraumatic, Normocephalic Neck: Supple Respiratory: Clear to auscultation bilaterally, Normal air movement Cardiovascular: Regular rate/rhythm, Normal S1 S2 Capillary refill: <2 Seconds Gastrointestinal: Soft and benign, W/out hepatosplenomegaly Musculoskeletal: No clubbing Integumentary: No rashes Neurological: Normal gait, Normal speech, Normal strength at 5/5 x4 extr, Cranial nerves 3-12 intact, Normal reflexes 2+, Normal affect Lymphatics: No axilla or inguinal lymphadenopathy - Studies Laboratory Data (last 24 hrs) 12/16/24 12/16/24 12/16/24 23:40 23:40 23:40 WBC 7.00 Hgb 14.1 Hct 41.7 Plt Count 344 PT 10.2 INR 0.90 Sodium 140 Potassium 3.1 L BUN 12 Creatinine 0.65 Glucose 117 H Magnesium 2.3 Total Bilirubin 0.9 AST 11 L ALT 29 Alkaline Phosphatase 118 H Assessment and Plan - Plan Effort angina Chest pain rule out ACS Will monitor telemetry Started on aspirin and statin EKG did not show any acute changes suggestive of ischemia Patient denies any chest pain at rest Will get an echocardiogram Cardiology consult History of MVP Patient denies any mitral valve regurgitation previously Will get an echocardiogram GERD Continue PPI GI/DVT prophylaxis Advanced directive full code Discharge Plan: Home Plan to discharge in: 48 Hours - Advance Directives Does patient have a Living Will: No Does patient have a Durable POA for Healthcare: No - Code Status/Comfort Care Code Status: Full Code Time Spent Managing Pts Care (In Minutes): 48
[2024-12-17 06:31] VITALS: BMI 27.9
[2024-12-17] MEDS ORDERED: ACETAMINOPHEN 325 MG TABLET PO PRN (08:00)
[2024-12-17 08:27] LABS: Anion Gap 8.1 mEq/L (5.0-15.0); BUN Blood Urea Nitrogen 10.0 mg/dL (7-18); Glucose Level 102.0 mg/dL (74-106); Potassium 4.1 mEq/L (3.5-5.1)
[2024-12-17] MEDS: ENOXAPARIN 40 MG/0.4 ML SQ SCH (08:43)
[2024-12-17] MEDS: ASPIRIN EC 81 MG TAB PO SCH (08:43)
[2024-12-17] MEDS: PANTOPRAZOLE 40MG TABLET PO SCH (08:43)
--- NOTE | 2024-12-17 09:50 | P.CNS ---
Date of Consult: 12/17/24 Chief Complaint: Chest Pain History of Present Illness: Patient with no significant PMH presented with worsening angina on exertion, raditing to her left arm, report history of MV proalpse and also occasional palpitations, denies having any other cardiac symptoms. Allergies No Known Drug Allergies Allergy (Verified 12/17/24 06:29) Unknown Home medications list reviewed: Yes Home Medications: Pantoprazole Sodium [Protonix] 40 mg PO PRN PRN 06/20/17 - Past Medical/Surgical History Diabetic: No -: Diverticulitis, previous colectomy left side -: Mitral valve prolapse -: GERD -: Cholecystectomy -: Tubal ligation -: Colectomy left side-6 inches of intestine removed Psychosocial/ Personal History: She is of 30 years. She has 2 children. 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 moist/pink, EOMI, Sclerae nonicteric Neck: Supple, 2+ carotid pulse no bruit, No LAD, Without JVD or thyroid abnormality Respiratory: Clear to auscultation bilaterally, Normal air movement Cardiovascular: Regular rate/rhythm, Normal S1 S2 Gastrointestinal: Normal bowel sounds, No tenderness Musculoskeletal: No tenderness Integumentary: No rashes Neurological: Normal gait, Normal speech, Normal tone, Normal affect Lymphatics: No axilla or inguinal lymphadenopathy Laboratory Data (last 24 hrs) 12/16/24 12/16/24 12/16/24 23:40 23:40 23:40 WBC 7.00 Hgb 14.1 Hct 41.7 Plt Count 344 PT 10.2 INR 0.90 Sodium 140 Potassium 3.1 L BUN 12 Creatinine 0.65 Glucose 117 H Magnesium 2.3 Total Bilirubin 0.9 AST 11 L ALT 29 Alkaline Phosphatase 118 H - Problems (1) Unstable angina Current Visit: Yes Status: Acute Plan: concern for unstable angina, NPO after midnight for coronary angiogram in am get echo ASA 81 mg daily Lipitor 40 mg daily
--- NOTE | 2024-12-17 14:19 | P.PN ---
Date of Service: 12/17/24 Patient seen and examined. She denies chest pain laying down. Patient reported chest pain with exertion Troponin trended negative. Patient evaluated by cardiology who is planning cardiac catheterization tomorrow for concern for unstable angina. Continue aspirin, Lipitor. Patient has bradycardia limiting beta-alcon use. Echocardiogram ordered.
[2024-12-17] MEDS: ATORVASTATIN 40 MG TAB PO SCH (21:00)
[2024-12-18 05:08] LABS: Absolute Lymphocytes (CBC) 2.2 K/uL (0.7-4.9); Hematocrit 38.9 % (36.0-45.0); Hemoglobin 13.8 g/dL (12.0-15.0); MCH 30.1 pg (27.0-35.0); MCHC 35.6 g/dL (32.0-36.0); MCV 84.6 fL (80-100); MPV 7.5 fL (7.6-11.3); Nucleated RBC Absolute Count 0.0 (0-0); Nucleated Red Blood Cells % 0.1 % (0-0); RBC Red Blood Cell Count 4.60 M/uL (3.86-4.86); White Blood Count 5.80 thou/uL (4.3-10.9)
[2024-12-18 05:26] LABS: ALT/SGPT 26 U/L (13-56); Albumin 3.2 g/dL (3.4-5.0); Albumin/Globulin Ratio 0.9 (1.1-1.8); Alkaline Phosphatase 104 U/L (45-117); Anion Gap 7.9 mEq/L (5.0-15.0); BUN Blood Urea Nitrogen 14 mg/dL (7-18); Globulin 3.5 g/dL (2.3-3.5); Glucose Level 97 mg/dL (74-106); HDL Cholesterol 54 mg/dL (40-60); LDL Cholesterol, Calculated 97 mg/dL (<130); LDL Cholesterol,Calc NonReport 97; Potassium 3.9 mEq/L (3.5-5.1)
[2024-12-18 05:27] LABS: AST/SGOT < 10 U/L (15-37)
[2024-12-18] MEDS: NA CHLORIDE 0.9% 500 ML ONE (08:55)
[2024-12-18] MEDS ORDERED: HEPA 1000U/500MLS 2,000 UNIT/1,000 ML BAG IV ONE (09:07)
[2024-12-18] MEDS ORDERED: ATROPINE SULF 1 MG/10 ML SYR IV ONE (09:08)
[2024-12-18] MEDS ORDERED: CLOPIDOGREL 75 MG TABLET ONE (09:08)
[2024-12-18] MEDS ORDERED: TICAGRELOR 90 MG TABLET PO ONE (09:08)
[2024-12-18] MEDS ORDERED: LIDOCAINE 1% 20 ML MDV ONE (09:08)
[2024-12-18] MEDS ORDERED: HEPARIN 10,000 UNIT/10 ML VIAL IV ONE (09:08)
[2024-12-18] MEDS ORDERED: HEPARIN 5000 UNIT/ML 1 ML VIAL ONE (09:08)
[2024-12-18] MEDS: MIDAZOLAM HCL 2 MG/2 ML INJ ONE (09:10)
[2024-12-18] MEDS: FENTANYL CITR 100 MCG/2 ML ONE (09:10)
--- NOTE | 2024-12-18 10:39 | P.PN ---
Subjective Date of Service: 12/18/24 Chief Complaint: Chest Pain Subjective: No new changes, No C/O voiced, Tolerating diet, Ambulating, Improving Review of Systems 10-point ROS is otherwise unremarkable Physical Examination - Vital Signs Temperature: 97.6 F Blood Pressure: 145/72 Pulse: 74 Respirations: 20 Pulse Ox (%): 95 - Physical Exam General: Alert, In no apparent distress HEENT: Atraumatic, PERRLA, EOMI Neck: Supple, JVD not distended Respiratory: Clear to auscultation bilaterally, Normal air movement Cardiovascular: Regular rate/rhythm, Normal S1 S2 Gastrointestinal: Normal bowel sounds, No tenderness Musculoskeletal: No tenderness Integumentary: No rashes Neurological: Normal speech, Normal tone, Normal affect Lymphatics: No axilla or inguinal lymphadenopathy - Studies Medications List Reviewed: Yes Assessment And Plan - Current Problems (Diagnosis) (1) Unstable angina Current Visit: Yes Status: Acute Plan: concern for unstable angina, coronary angiogram done today and shown mild mid LAD disease outpatient echo ASA 81 mg daily Lipitor 40 mg daily
--- NOTE | 2024-12-18 12:49 | P.DS ---
Admission Date: 12/17/24 Discharge Date: 12/18/24 Disposition: ROUTINE DISCHARGE Discharge Condition: FAIR Reason for Admission: Chest Pain Brief History of Present Illness: 59 yrs old Female with past medical history of mitral valve prolapse, diverticulosis, cholecystectomy, partial colectomy who came in with chest pain which has been going on for 5 days associated with some shortness of breath. Troponin measured in the ED was negative, EKG did not show any ischemic changes. Patient was hospitalized for further management of chest pain to rule out ACS and possible effort angina. Hospital Course: Diagnosis Chest pain Mitral valve prolapse Patient placed on observation on the medical floor, troponin trended negative. She was evaluated by cardiology Dr. Jones who performed cardiac catheterization for concern for unstable angina. Cardiac catheterization revealed mild coronary artery disease according to Dr. Jones. Patient deemed stable for discharge per Dr. Jones. She is prescribed aspirin and Lipitor. Vital Signs/Physical Exam: Temp Pulse Resp BP Pulse Ox 97.6 F 64 16 118/59 L 95 12/18/24 10:39 12/18/24 10:40 12/18/24 10:40 12/18/24 10:40 12/18/24 10:39 General: Alert, In no apparent distress, Oriented x3 Neck: JVD not distended Respiratory: Clear to auscultation bilaterally, Normal air movement Cardiovascular: No edema, Regular rate/rhythm, Normal S1 S2 Gastrointestinal: Soft and benign, Non-distended Musculoskeletal: No swelling Integumentary: No rashes, No cyanosis Neurological: Normal strength at 5/5 x4 extr Laboratory Data at Discharge: WBC 5.80 thou/uL (4.3-10.9) 12/18/24 04:29 Hgb 13.8 g/dL (12.0-15.0) 12/18/24 04:29 Hct 38.9 % (36.0-45.0) 12/18/24 04:29 Plt Count 338 thou/uL (152-406) 12/18/24 04:29 PT 10.2 SECONDS (10-13.0) 12/16/24 23:40 INR 0.90 12/16/24 23:40 Sodium 140 mEq/L (136-145) 12/18/24 04:29 Potassium 3.9 mEq/L (3.5-5.1) 12/18/24 04:29 BUN 14 mg/dL (7-18) 12/18/24 04:29 Creatinine 0.63 mg/dL (0.55-1.02) 12/18/24 04:29 Glucose 97 mg/dL (74-106) 12/18/24 04:29 Magnesium 2.3 mg/dL (1.6-2.4) 12/16/24 23:40 Total Bilirubin 1.2 mg/dL (0.2-1.0) H 12/18/24 04:29 AST < 10 U/L (15-37) L 12/18/24 04:29 ALT 26 U/L (13-56) 12/18/24 04:29 Alkaline Phosphatase 104 U/L (45-117) 12/18/24 04:29 Triglycerides 79 mg/dL (<150) 12/18/24 04:29 Cholesterol 167 mg/dL (<200) 12/18/24 04:29 HDL Cholesterol 54 mg/dL (40-60) 12/18/24 04:29 Cholesterol/HDL Ratio 3.09 12/18/24 04:29 Home Medications: Pantoprazole Sodium [Protonix] 40 mg PO PRN PRN 06/20/17 Aspirin [Aspirin EC 81 MG] 81 mg PO DAILY #30 tab 12/18/24 Atorvastatin Calcium [Lipitor] 40 mg PO BEDTIME #30 tab 12/18/24 New Medications: Aspirin [Aspirin EC 81 MG] 81 mg PO DAILY #30 tab Atorvastatin Calcium [Lipitor] 40 mg PO BEDTIME #30 tab Diet: AHA Activity: Ad mari Followup: Leonel Jones MD [ACTIVE - CAN ADMIT] - 1-2 Weeks Jony Triplett DO [Primary Care Provider] - 1-2 Weeks Time spent managing pt's care (in minutes): 27
[2024-12-18 12:58] VITALS: O2SAT 94
[2024-12-18 16:45] VITALS: BP 133/78; TEMP 97.8
--- NOTE | 2024-12-19 03:46 | OP ---
Date of Procedure: 12/18/2024 Surgeon: Leonel Jones Procedure Performed: Selective coronary angiogram. Indication For Procedure: Unstable angina. Complications: None. Estimated Blood Loss: Less than 50 cc. Access: Right radial, closed by TR band and right common femoral artery, closed by Mynx. Description Of Procedure: After risks, benefits, and alternatives were explained to the patient, the patient agreed to proceed with procedure and signed informed consent. The patient was brought back to the sugar laboratory assistant, prepped and draped in sterile fashion. Time-out was performed. Sedation was admini stered. Next, right radial access was obtained using ultrasound-guided micropuncture technique. Tig er 4 catheter was advanced through the aortic root. Selective angiogram of the right coronary artery was done using the same catheter. Later on, we tried the JL3 catheter for the selective angiogram o f the left coronary system, but was unable to do so due to very short ascending aorta, so right commo n femoral artery access was obtained. A 6-Bengali sheath was inserted and selective angiogram of the left coronary system was done using a JL3 catheter. At the end of procedure, catheter was removed ov er a J-wire. The groin sheath was removed. Mynx was applied and the radial sheath was removed. TR band was applied. Hemostasis achieved and the patient was moved back to recovery in stable condition . Findings: 1. Left main, normal. 2. LAD, proximal to mid 20% to 30% disease, then mild luminal irregularities. 3. Left circ, normal. 4. RCA, normal. Assessment: Mild nonobstructive CAD in the proximal to mid LAD. Plan: To continue medical management with aspirin and statins. JOEL/SHEELA Voice ID: [id number] Report ID: [id number]
== END 2024-12-18 17:20 | disposition home or self-care (01) ==
LOC: ER 20:48 → 2ND 12-17 04:46
PROVIDERS: ADMIT Family Medicine; ATTEND Internal Medicine
PROC: B2111ZZ Fluoroscopy of Multiple Coronary Arteries using Low Osmolar Contrast (ICD-10-PCS; principal; 2024-12-18)
DX: I25.110 Atherosclerotic heart disease of native coronary artery with unstable angina pectoris (principal); I34.1 Nonrheumatic mitral (valve) prolapse; R00.1 Bradycardia, unspecified; K57.90 Diverticulosis of intestine, part unspecified, without perforation or abscess without bleeding; K21.9 Gastro-esophageal reflux disease without esophagitis; Z87.891 Personal history of nicotine dependence; Z90.49 Acquired absence of other specified parts of digestive tract; Z82.49 Family history of ischemic heart disease and other diseases of the circulatory system; Z82.3 Family history of stroke; Z83.3 Family history of diabetes mellitus
CPT/HCPCS: 96361; 93005; 87040 ×2; 85025 ×2; 80048 ×2; 36415 ×2; 83735; 85610; 80061; 80076; 84484 ×2; 80053; 83880; 71275; 71045; 93454; 76937; 96360; 99285; Q9967; C1893; Q9966; J1644 ×2; J2003; J1650; J2250; J3010; G0378 ×4; J7040; J7030; C1760; 99152; 99153; J0461